=== PATIENT | female | born 1995 | race Caucasian/White ===

== ENCOUNTER 2016-04-18 14:54 | Emergency (ER) | payer OTHER ==
[~2016-04-18] VITALS: Ht 167.6 cm; Wt 118.0 kg
[~2016-04-18 14:54] MED LIST: ALBU1AER9 INH; ASPITAB42 PO; FLUT44AE INH; NORG1TAB15 PO
[2016-04-18 14:58] VITALS: TEMP 36.9; Ht 167.6 cm; Wt 118.0 kg
[2016-04-18] MEDS ORDERED: ONDANSETRON INJ 2 MG/ML 2 ML VIAL IV STA (15:30)
[2016-04-18] MEDS ORDERED: SODIUM CHLORIDE 0.9% 1000ML 1,000 ML IV STA (15:30)
[2016-04-18] MEDS ORDERED: MoRPHine SULFATE 4 MG/ML 1 ML CARP\\VIAL IV STA (15:30)
[2016-04-18] MEDS ORDERED: SODIUM CHLORIDE 0.9% 1000ML 1,000 ML IV ONE (15:30)
[2016-04-18] MEDS ORDERED: ALBU18002 INH (15:36)
[2016-04-18 15:53] LABS: BASO % 0.2 %; BASO ABS # 0.02 K/uL (0-0.2); COMPLETE YES; EOS % 0.8 %; HEMATOCRIT 40.8 % (37-47); IG% 0.4 %; LYMPH % 23.8 %; LYMPH ABS # 2.73 K/uL (1.2-3.4); MEAN CELL VOLUME 86.6 fL (80-100); MEAN CORPUSCULAR HEMOGLOBIN 29.7 pg (25-34); MEAN CORPUSCULAR HGB CONC 34.3 g/dl (32-36); MEAN PLATELET VOLUME 10.9 fL (7.4-10.4); MONO % 9.5 %; NEUT % 65.3 %; PLATELET COUNT 272 K/uL (130-400); RED BLOOD COUNT 4.71 M/uL (4.2-5.4); WHITE BLOOD COUNT 11.46 K/uL (4.8-10.8)
--- NOTE | 2016-04-18 15:55 | EMERGENCY ROOM VISIT NOTE ---
History Report prepared by Jessica: Breann Norman Under the Supervision of: Dr. Mark Mascorro M.D. First contact with patient: 15:30 Chief Complaint: HEADACHE Stated Complaint: SEVERE HEADACHE,MILD CRAMPS, 6 WEEKS History of Present Illness The patient is a 21 year old female who presents to the Emergency Room with complaints of a severe headache starting 2 days ago. The patient has a history of migraine headaches but she was taken off of Amitriptyline about a year ago. She reports her current headache is similar to her past migraine headaches. She describes it to be a pressure in her head on both sides which radiates to the back of her neck. She also reports a blurry vision and nausea. The patient also complains of a constant, mild abdominal cramps occurring for the past 5 days. She is currently about 6 weeks . She has not received an ultrasound yet. Her last menstrual period was on March 14 and it was not normal timing for her. She has had one , and one child. She denies any history of ectopic , , or miscarriage. She also complains of resolving bilateral upper extremity swelling. She has pain with squeezing her hands. The patient denies any recent falls, fevers, chills, vomiting, urinary symptoms, numbness, weakness, or any other complaints. Source of History: patient Onset: 2 days ago Position: head Symptom Intensity: severe Quality: pressure Associated Symptoms: + abdominal pain, + nausea, No chills, No fevers, No numbness, No urinary symptoms, No vomiting, No weakness Review of Systems See HPI for pertinent positives & negatives. A total of 10 systems reviewed and were otherwise negative. Past Medical & Surgical Medical Problems: (1) Abdominal pain (2) Abdominal pain (3) Abdominal pain (4) Abdominal pain (5) Active labor at term (6) Asthma (7) Asthma exacerbation (8) Asthma exacerbation (9) Asthma with exacerbation (10) Back pain (11) Back pain (12) Bronchitis (13) Chest pain (14) Closed head injury (15) Concussion (16) Depression (17) Dizziness (18) Encounter for test (19) First trimester (20) First trimester (21) Head injury (22) Irregular contractions (23) Low back pain (24) Low back pain (25) Migraine (26) Nausea and vomiting of , antepartum (27) Ovarian cyst (28) Ovarian cyst, follicular (29) Positive test (30) (31) , first (32) Third trimester (33) Third trimester (34) Threatened miscarriage (35) Urinary tract infection (36) Viral syndrome Surgical Problems: (1) History of tonsillectomy Old medical records were reviewed. Nurse's notes were reviewed and I agree with. Family History Diabetes mellitus FH: Crohn's disease FH: cancer FH: gallbladder disease FH: heart disease Hypertension Kidney disease Kidney stones Seizures Social History Smoking Status: Never Smoker Alcohol Use: none Drug Use: none Housing Status: lives with friends Occupation Status: employed Current/Historical Medications Scheduled PRN Albuterol Sulfate (Proair Respiclick), 2 PUFFS INH TID PRN for Shortness of Breath Allergies Coded Allergies: Dextromethorphan (Verified Allergy, Mild, RASH TO THE DYE IN DAYQUIL, 04/18) Guaifenesin (Verified Allergy, Mild, RASH TO THE DYE IN DAYQUIL, 04/18/16) Amadou (Verified Allergy, Mild, burning throat, 04/18/16) Pseudoephedrine (Verified Allergy, Mild, RASH TO THE DYE IN DAYQUIL, ) Uncoded Allergies: DYE (Allergy, Unknown, RASH, 04/18/16) Physical Exam Vital Signs Date Time Temp Pulse Resp B/P Pulse Ox O2 Delivery O2 Flow Rate FiO2 04/18/16 17:54 83 18 122/79 100 Room Air 04/18/16 17:12 85 18 139/84 100 Room Air 04/18/16 15:23 85 16 132/81 98 Room Air 04/18/16 14:58 36.9 97 18 131/84 99 Room Air Physical Exam General: Non-ill appearing, young female, in no acute distress. HEENT: Normal cephalic atraumatic. Pupils are equal round and reactive to light. Sclerae anicteric. Extraocular movements are intact. Oropharynx is pink with moist mucous membranes. No swelling of the mouth lips or tongue. Neck: Supple with a midline trachea. No meningeal signs or stiffness, no JVD or bruits. No Stridor. Negative Kernig and Brudzinski sign Chest: Clear to auscultation bilaterally. No wheezes or rhonchi. No increased work of breathing. Heart: regular rate and rhythm. Abdomen: Soft nontender, nondistended without rebound guarding or rigidity. Extremities: No cyanosis clubbing or edema. No calf tenderness or assymetry Spine/Back. Non tender to palpation. No CVA tenderness Skin: Good turgor without rashes. Neurologic exam: Cranial nerves two through 12 are intact. Motor and sensation are intact and symmetrical throughout. Medical Decision & Procedures ER Provider Diagnostic Interpretation: US results as stated below per my review and radiologist interpretation: ULTRASOUND OF THE PELVIS CLINICAL HISTORY: Pelvic cramping. Reportedly 6 weeks . COMPARISON STUDY: Pelvic ultrasound dated 11/30/2015. TECHNIQUE: Real-time, grayscale, and color flow sonography of the pelvis is performed both transabdominally and endovaginally. Images are reviewed in the transverse and longitudinal planes. FINDINGS: Uterus: The retroverted uterus is normal in size and echotexture, measuring 8.5 x 4.1 x 5.8 cm. Endometrium: The endometrial stripe is thickened measuring up to 2.2 cm. There is a 5 mm cystic focus which contains a yolk sac. This is too small for estimation of dates. Ovaries: The ovaries are normal in size and morphology. The right ovary measures 3.0 x 1.9 x 2.8 cm and the left ovary measures 3.9 x 2.1 x 4.1 cm. A 2.5 cm corpus luteum is noted on the left. Additional follicles are seen bilaterally. Normal Doppler waveforms are shown within both ovaries. Pelvis: There is trace free fluid in the cul-de-sac. No concerning adnexal lesion is seen. IMPRESSION: 1. There is a 5 mm cystic focus identified within the endometrium which contains a yolk sac. This confirms intrauterine gestation. This is too small for estimation of dates, and likely represents early . Close clinical, laboratory, and sonographic follow-up will be required. 2. The ovaries are normal in appearance noting a corpus luteum on the left. 3. There is trace nonspecific free fluid in the cul-de-sac. Electronically signed by: Marvin Porras M.D. 04/18/2016 5:29 PM Dictated Date/Time: 04/18/2016 5:25 PM ULTRASOUND OF THE PELVIS CLINICAL HISTORY: Pelvic cramping. Reportedly 6 weeks . COMPARISON STUDY: Pelvic ultrasound dated 11/30/2015. TECHNIQUE: Real-time, grayscale, and color flow sonography of the pelvis is performed both transabdominally and endovaginally. Images are reviewed in the transverse and longitudinal planes. FINDINGS: Uterus: The retroverted uterus is normal in size and echotexture, measuring 8.5 x 4.1 x 5.8 cm. Endometrium: The endometrial stripe is thickened measuring up to 2.2 cm. There is a 5 mm cystic focus which contains a yolk sac. This is too small for estimation of dates. Ovaries: The ovaries are normal in size and morphology. The right ovary measures 3.0 x 1.9 x 2.8 cm and the left ovary measures 3.9 x 2.1 x 4.1 cm. A 2.5 cm corpus luteum is noted on the left. Additional follicles are seen bilaterally. Normal Doppler waveforms are shown within both ovaries. Pelvis: There is trace free fluid in the cul-de-sac. No concerning adnexal lesion is seen. IMPRESSION: 1. There is a 5 mm cystic focus identified within the endometrium which contains a yolk sac. This confirms intrauterine gestation. This is too small for estimation of dates, and likely represents early . Close clinical, laboratory, and sonographic follow-up will be required. 2. The ovaries are normal in appearance noting a corpus luteum on the left. 3. There is trace nonspecific free fluid in the cul-de-sac. Electronically signed by: Marvin Porras M.D. 04/18/2016 5:29 PM Dictated Date/Time: 04/18/2016 5:25 PM Laboratory Results 04/18/16 15:39 Red Blood Count 4.71, Mean Corpuscular Volume 86.6, Mean Corpuscular Hemoglobin 29.7, Mean Corpuscular Hemoglobin Concent 34.3, Mean Platelet Volume 10.9, Neutrophils (%) (Auto) 65.3, Lymphocytes (%) (Auto) 23.8, Monocytes (%) (Auto) 9.5, Eosinophils (%) (Auto) 0.8, Basophils (%) (Auto) 0.2, Neutrophils # (Auto) 7.48, Lymphocytes # (Auto) 2.73, Monocytes # (Auto) 1.09, Eosinophils # (Auto) 0.09, Basophils # (Auto) 0.02 04/18/16 15:39 Test 04/18/16 15:30 04/18/16 15:39 White Blood Count 11.46 K/uL (4.8-10.8) Red Blood Count 4.71 M/uL (4.2-5.4) Hemoglobin 14.0 g/dL (12.0-16.0) Hematocrit 40.8 % (37-47) Mean Corpuscular Volume 86.6 fL (80-100) Mean Corpuscular Hemoglobin 29.7 pg (25-34) Mean Corpuscular Hemoglobin Concent 34.3 g/dl (32-36) Platelet Count 272 K/uL (130-400) Mean Platelet Volume 10.9 fL (7.4-10.4) Neutrophils (%) (Auto) 65.3 % Lymphocytes (%) (Auto) 23.8 % Monocytes (%) (Auto) 9.5 % Eosinophils (%) (Auto) 0.8 % Basophils (%) (Auto) 0.2 % Neutrophils # (Auto) 7.48 K/uL (1.4-6.5) Lymphocytes # (Auto) 2.73 K/uL (1.2-3.4) Monocytes # (Auto) 1.09 K/uL (0.11-0.59) Eosinophils # (Auto) 0.09 K/uL (0-0.5) Basophils # (Auto) 0.02 K/uL (0-0.2) RDW Standard Deviation 43.3 fL (36.4-46.3) RDW Coefficient of Variation 13.7 % (11.5-14.5) Immature Granulocyte % (Auto) 0.4 % Immature Granulocyte # (Auto) 0.05 K/uL (0.00-0.02) Anion Gap 11.0 mmol/L (3-11) Est Creatinine Clear Calc Drug Dose 189.1 ml/min Estimated GFR () > 150.0 Estimated GFR (Non- 129.8 BUN/Creatinine Ratio 13.4 (10-20) Calcium Level 8.2 mg/dl (8.5-10.1) Total Bilirubin 0.3 mg/dl (0.2-1) Direct Bilirubin < 0.1 mg/dl (0-0.2) Aspartate Amino Transf (AST/SGOT) 15 U/L (15-37) Alanine Aminotransferase (ALT/SGPT) 25 U/L (12-78) Alkaline Phosphatase 100 U/L (45-117) Total Protein 6.6 gm/dl (6.4-8.2) Albumin 3.2 gm/dl (3.4-5.0) Lipase 81 U/L (73-393) Human Chorionic Gonadotropin, Quant 1033 mIU/mL Laboratory studies as stated above per my review. Medications Administered Medications (Trade) Dose Ordered Sig/Froylan Route Start Time Stop Time Status Last Admin Dose Admin Sodium Chloride 1,000 ml @ 999 mls/hr Q1H1M STAT IV 04/18/16 15:30 04/18/16 16:30 DC 04/18/16 15:42 999 MLS/HR Sodium Chloride (Nss 1000ml) 1,000 ml @ 200 mls/hr Q5H ONCE IV 04/18/16 15:30 04/18/16 20:29 04/18/16 17:06 200 MLS/HR Morphine Sulfate (MoRPHine SULFATE INJ) 4 mg NOW STAT IV 04/18/16 15:30 04/18/16 15:32 DC 04/18/16 15:50 4 MG Ondansetron HCl (Zofran Inj) 4 mg NOW STAT IV 04/18/16 15:30 04/18/16 15:32 DC 04/18/16 15:49 4 MG Acetaminophen (Tylenol Tab) 650 mg NOW STAT PO 04/18/16 17:27 04/18/16 17:29 DC 04/18/16 17:43 650 MG ED Course 1530: Past medical records reviewed. The patient was evaluated in room A09B, and a complete history and physical examination were performed. 1530: Zofran Inj 4 mg IV, Morphine Sulfate 4 mg IV, Sodium Chloride 1000 ml @ 200 mls/hr IV, Sodium Chloride 1000 ml @ 999 mls/hr IV 1632: The patient is currently in ultrasound. 1727: She is complaining of a headache. Tylenol Tab 650 mg PO 1751: Upon reevaluation, the patient is doing well. I discussed the results and treatment plan with her. She verbalized agreement of the treatment plan. The patient was discharged home. Medical Decision Differential diagnosis includes but is not limited to migraine, ectopic , miscarriage, , UTI, electrolyte or metabolic abnormality. This patient comes in as described above. She was placed in room A9. She has a couple complaints. She's had a headache consistent with her previous migraines for couple days. She is also diagnosed with being recently. She estimates 6 weeks she's had some occasional cramping in the lower abdomen but no bleeding. This is her second she has no history of ectopic or miscarriage. She looks well on exam and has a normal neurologic exam. She has nothing to suggest meningitis or encephalitis. IV access was established and she was hydrated with 1 L IV normal saline. She was reassessed frequently. She was given morphine 4 mg IV and Zofran 4 mg IV. She was feeling better and did require Tylenol as well as 600 mg by mouth. Her white count is mildly elevated but she has nothing to suggest infection. She has no meningeal signs or stiffness. She's had no significant electrolyte or metabolic abnormalities. Her hCG is in the low thousand range on ultrasound. There is an IUP seen but to early to characterize dates. No ectopic seen. She's had no vaginal bleeding. Her blood type is O+ therefore she would not need any RhoGAM. It appears that she is having a migraine headache. She is also found to have an intrauterine . At this point, I cannot exclude an early miscarriage either and I told her to keep an eye on things and return if: Vaginal bleeding, worsening of symptoms, fever or chills, any new problems or concerns. She was happy with the plan and was discharged home. Impression Primary Impression: Migraine Additional Impressions: Intrauterine Abdominal cramping Scribe Attestation The scribe's documentation has been prepared under my direction and personally reviewed by me in its entirety. I confirm that the note above accurately reflects all work, treatment, procedures, and medical decision making performed by me. Departure Information Dispostion Home / Self-Care Referrals No Doctor, Assigned (PCP) Forms HOME CARE DOCUMENTATION FORM, IMPORTANT VISIT INFORMATION Patient Instructions My [facility] Additional Instructions Rest. Drink plenty of fluids. Use Tylenol/acetaminophen a maximum of 650 mg every 6 hours Do not take with any other medications that contain Tylenol Stay well-hydrated. Use a vitamin Return if: Increasing pain, numbness weakness, vaginal bleeding, worsening symptoms, any new problems or concerns. Follow-up with your OB doctor this week for recheck Problem Qualifiers
[2016-04-18 16:13] LABS: ALT/SGPT 25 U/L (12-78); BLOOD UREA NITROGEN 8 mg/dl (7-18); BUN/CREATININE RATIO 13.4 (10-20); CALCIUM 8.2 mg/dl (8.5-10.1); CARBON DIOXIDE 24 mmol/L (21-32); CHLORIDE 108 mmol/L (98-107); CREATININE 0.62 mg/dl (0.60-1.20); GLUCOSE 88 mg/dl (70-99); POTASSIUM 3.5 mmol/L (3.5-5.1); SODIUM 143 mmol/L (136-145)
[2016-04-18 16:16] LABS: ALKALINE PHOSPHATASE 100 U/L (45-117); AST/SGOT 15 U/L (15-37)
[2016-04-18] MEDS ORDERED: ACETAMINOPHEN 325 MG TAB PO STA (17:27)
--- NOTE | 2016-04-18 17:30 | DIAGNOSTIC IMAGING REPORT ---
ULTRASOUND OF THE PELVIS CLINICAL HISTORY: Pelvic cramping. Reportedly 6 weeks . COMPARISON STUDY: Pelvic ultrasound dated 11/30/2015. TECHNIQUE: Real-time, grayscale, and color flow sonography of the pelvis is performed both transabdominally and endovaginally. Images are reviewed in the transverse and longitudinal planes. FINDINGS: Uterus: The retroverted uterus is normal in size and echotexture, measuring 8.5 x 4.1 x 5.8 cm. Endometrium: The endometrial stripe is thickened measuring up to 2.2 cm. There is a 5 mm cystic focus which contains a yolk sac. This is too small for estimation of dates. Ovaries: The ovaries are normal in size and morphology. The right ovary measures 3.0 x 1.9 x 2.8 cm and the left ovary measures 3.9 x 2.1 x 4.1 cm. A 2.5 cm corpus luteum is noted on the left. Additional follicles are seen bilaterally. Normal Doppler waveforms are shown within both ovaries. Pelvis: There is trace free fluid in the cul-de-sac. No concerning adnexal lesion is seen. IMPRESSION: 1. There is a 5 mm cystic focus identified within the endometrium which contains a yolk sac. This confirms intrauterine gestation. This is too small for estimation of dates, and likely represents early . Close clinical, laboratory, and sonographic follow-up will be required. 2. The ovaries are normal in appearance noting a corpus luteum on the left. 3. There is trace nonspecific free fluid in the cul-de-sac. Electronically signed by: Marvin Porras M.D. 04/18/2016 5:29 PM Dictated Date/Time: 04/18/2016 5:25 PM
[2016-04-18 17:54] VITALS: BP 122/79; PULSE 83; O2SAT 100
[2016-10-27] MEDS ORDERED: ONDA4TAB46 PO (03:00)
== END 2016-04-18 18:02 | disposition home or self-care (01) ==
LOC: C.EDB 14:55 → C.EDA 18:02
DX: G43.909 Migraine, unspecified, not intractable, without status migrainosus (principal); O99.89 Other specified diseases and conditions complicating pregnancy, childbirth and the puerperium; Z3A.01 Less than 8 weeks gestation of pregnancy

== ENCOUNTER 2016-04-22 12:13 | Emergency (ER) | payer OTHER ==
[~2016-04-22] VITALS: Ht 167.6 cm; Wt 118.3 kg
[~2016-04-22 12:13] MED LIST changes: +ALBU18002 INH; -ALBU1AER9 INH; -ASPITAB42 PO; -FLUT44AE INH; -NORG1TAB15 PO
[2016-04-22 12:17] VITALS: TEMP 36.8; Ht 167.6 cm; Wt 118.3 kg
[2016-04-22] MEDS ORDERED: SODIUM CHLORIDE 0.9% 1000ML 1,000 ML IV ONE (12:37)
[2016-04-22] MEDS ORDERED: SODIUM CHLORIDE 0.9% 1000ML 1,000 ML IV STA (12:37)
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
[2016-04-22 13:03] LABS: BASO % 0.2 %; BASO ABS # 0.02 K/uL (0-0.2); COMPLETE YES; EOS % 0.6 %; IG% 0.3 %; LYMPH % 18.9 %; LYMPH ABS # 2.38 K/uL (1.2-3.4); MEAN CELL VOLUME 86.8 fL (80-100); MEAN CORPUSCULAR HEMOGLOBIN 29.2 pg (25-34); MEAN CORPUSCULAR HGB CONC 33.6 g/dl (32-36); MEAN PLATELET VOLUME 10.9 fL (7.4-10.4); MONO % 9.5 %; NEUT % 70.5 %; PLATELET COUNT 286 K/uL (130-400); RED BLOOD COUNT 5.07 M/uL (4.2-5.4); WHITE BLOOD COUNT 12.58 K/uL (4.8-10.8)
[2016-04-22 13:27] LABS: BUN/CREATININE RATIO 16.8 (10-20); CREATININE 0.69 mg/dl (0.60-1.20); POTASSIUM 3.8 mmol/L (3.5-5.1)
--- NOTE | 2016-04-22 14:41 | DIAGNOSTIC IMAGING REPORT ---
Limited ultrasound LIMITED (US) CLINICAL HISTORY: eval for demise pain TECHNIQUE: Transabdominal as well as transvaginal evaluation. COMPARISON STUDY: 04/18/2016 FINDINGS: Intrauterine gestational sac. Maternal cervix is closed. HISTORY: Of gestational age 5 weeks 5 days. heart previous not confirmed possibly due to the early gestational age. IMPRESSION: Intrauterine gestational sac with a pole confirmed. 2. are patent up to obtain probably due to the early gestational age of 5 weeks 5 days. 3. Repeat ultrasound is recommended a later date to confirm viability Electronically signed by: Glen Schwartz M.D. 04/22/2016 2:40 PM Dictated Date/Time: 04/22/2016 2:37 PM
[2016-04-22 15:05] VITALS: BP 141/90; PULSE 88; O2SAT 100
[2016-10-27] MEDS ORDERED: ONDA4TAB46 PO (03:00)
== END 2016-04-22 15:06 | disposition home or self-care (01) ==
LOC: C.EDB 12:14 → C.EDC 15:06
DX: O9A.211 Injury, poisoning and certain other consequences of external causes complicating pregnancy, first trimester (principal); S06.0X9A Concussion with loss of consciousness of unspecified duration, initial encounter; S39.91XA Unspecified injury of abdomen, initial encounter; Z3A.01 Less than 8 weeks gestation of pregnancy; O99.511 Diseases of the respiratory system complicating pregnancy, first trimester; J45.909 Unspecified asthma, uncomplicated; Z83.3 Family history of diabetes mellitus; Z82.49 Family history of ischemic heart disease and other diseases of the circulatory system; Z84.1 Family history of disorders of kidney and ureter; Z83.79 Family history of other diseases of the digestive system; Z84.89 Family history of other specified conditions; W22.09XA Striking against other stationary object, initial encounter; W01.198A Fall on same level from slipping, tripping and stumbling with subsequent striking against other object, initial encounter; Y99.8 Other external cause status

== ENCOUNTER → 2016-05-03 | Outpatient (CLI) | payer OTHER ==
[~2016-05-03] MED LIST changes: +CEPH500C PO; +NITR-5 PO; +ONDA4TAB10 SL; +ONDA4TAB46 PO; +PREN1TAB29 PO; +PROM25TA9 PO; +VNTHFA/IN INH
[2016-05-03 18:24] LABS: URINE APPEARANCE CLEAR (CLEAR); URINE BILIRUBIN NEG (NEG); URINE COLOR YELLOW; URINE NITRITE NEG (NEG); URINE SPECIFIC GRAVITY 1.019 (1.000-1.030); UROBILINOGEN NEG (NEG)
[2016-05-03 18:34] LABS: MANUAL MICROSCOPIC REQUIRED? NO; REVIEW REQ? NO
== END | disposition home or self-care (01) ==
LOC: C.LABSPEC 17:27
PROVIDERS: ATTEND Obstetrics & Gynecology
DX: Z34.90 Encounter for supervision of normal pregnancy, unspecified, unspecified trimester (principal); Z36 Encounter for antenatal screening of mother

== ENCOUNTER → 2016-05-09 | Outpatient (CLI) | payer OTHER ==
[2016-05-09 17:44] LABS: BASO % 0.1 %; BASO ABS # 0.02 K/uL (0-0.2); COMPLETE YES; EOS % 1.1 %; HEMATOCRIT 41.5 % (37-47); IG% 0.6 %; LYMPH % 24.4 %; LYMPH ABS # 3.42 K/uL (1.2-3.4); MEAN CELL VOLUME 84.9 fL (80-100); MEAN CORPUSCULAR HEMOGLOBIN 29.2 pg (25-34); MEAN CORPUSCULAR HGB CONC 34.5 g/dl (32-36); MEAN PLATELET VOLUME 11.1 fL (7.4-10.4); MONO % 9.8 %; PLATELET COUNT 327 K/uL (130-400); RED BLOOD COUNT 4.89 M/uL (4.2-5.4)
[2016-05-12 14:15] LABS: CHLAMYDIA TRACH RNA*** NOT DETECTED (NOT DETECTED); GC (NEIS GONORRHOEAE)RNA** NOT DETECTED (NOT DETECTED)
== END | disposition home or self-care (01) ==
LOC: C.LAB1850 16:24
PROVIDERS: ATTEND Obstetrics & Gynecology
DX: Z34.90 Encounter for supervision of normal pregnancy, unspecified, unspecified trimester (principal)

== ENCOUNTER 2016-06-12 08:39 | Emergency (ER) | payer OTHER ==
[~2016-06-12] VITALS: Ht 167.6 cm; Wt 116.8 kg
[~2016-06-12 08:39] MED LIST changes: -CEPH500C PO; -NITR-5 PO; -ONDA4TAB10 SL; -ONDA4TAB46 PO; -PREN1TAB29 PO; -PROM25TA9 PO; -VNTHFA/IN INH
[2016-06-12 08:50] VITALS: TEMP 37; Ht 167.6 cm; Wt 116.8 kg
[2016-06-12 09:28] LABS: URINE APPEARANCE CLEAR (CLEAR); URINE BILIRUBIN NEG (NEG); URINE COLOR DK YELLOW; URINE NITRITE NEG (NEG); URINE PH 5.5 (4.5-7.5); URINE SPECIFIC GRAVITY 1.026 (1.000-1.030); UROBILINOGEN NEG (NEG); ZZUR CULT IF INDIC CLEAN CATCH NO
[2016-06-12 09:34] LABS: MANUAL MICROSCOPIC REQUIRED? NO; REVIEW REQ? NO
[2016-06-12] MEDS ORDERED: ALBUTEROL HFA 8 GM INHALER INH STA (09:42)
[2016-06-12] MEDS ORDERED: ACETAMINOPHEN 500 MG TAB PO STA (09:44)
[2016-06-12 09:46] LABS: BASO % 0.2 %; BASO ABS # 0.02 K/uL (0-0.2); COMPLETE YES; EOS % 1.8 %; IG% 0.4 %; LYMPH % 14.3 %; LYMPH ABS # 1.46 K/uL (1.2-3.4); MEAN CELL VOLUME 85.1 fL (80-100); MEAN CORPUSCULAR HEMOGLOBIN 29.9 pg (25-34); MEAN CORPUSCULAR HGB CONC 35.1 g/dl (32-36); MEAN PLATELET VOLUME 11.3 fL (7.4-10.4); MONO % 8.3 %; PLATELET COUNT 204 K/uL (130-400); RED BLOOD COUNT 4.82 M/uL (4.2-5.4); WHITE BLOOD COUNT 10.22 K/uL (4.8-10.8)
--- NOTE | 2016-06-12 09:55 | EMERGENCY ROOM VISIT NOTE ---
History Report prepared by Jessica: Derian Cruz Under the Supervision of: Dr. Ravi Duarte M.D. First contact with patient: 09:36 Chief Complaint: ABDOMINAL PAIN Stated Complaint: GALLBLADDER PAIN, PELVIC CRAMPING,VOMITING,13 WEEK Nursing Triage Summary: Pain near her gall bladder. History of Present Illness The patient is a 21 year old female who presents to the Emergency Room with complaints of persistent abdominal pain for the past 2 weeks. The patient had an episode of vomiting this morning and afterwards her discomfort was worse. The discomfort started on her left side two weeks ago and she also complains of cramping on the right side for 2 weeks. Now, most of her discomfort has moved to her right side. She has a history of gallbladder issues and has discussed getting her gallbladder removed, but has decided not to have the surgery yet. She has been trying a new diet which has not helped resolved her symptoms. The patient also notes that she has had green stools for the past week. She denies diarrhea, but states that her bowel movements have been going back and forth between constipation and movements with soft stool. She also complains of a cough that started yesterday. She is 14 weeks and this is her second . She denies cramping in her legs. Source of History: patient Onset: the past 2 weeks Position: abdomen Timing: other (persistent) Associated Symptoms: + cough, + vomiting, No diarrhea Note: Other associated symptoms: cramping in her abdomen, green stool, alternating between constipation and soft bowel movements Denies: cramping in her legs. Review of Systems All systems have been listed, reviewed, and are negative other than those previously mentioned. Please see Additional Medical History Sheet. Past Medical & Surgical Medical Problems: (1) Abdominal pain (2) Abdominal pain (3) Abdominal pain (4) Abdominal pain (5) Active labor at term (6) Asthma (7) Asthma exacerbation (8) Asthma exacerbation (9) Asthma with exacerbation (10) Back pain (11) Back pain (12) Bronchitis (13) Chest pain (14) Closed head injury (15) Concussion (16) Depression (17) Dizziness (18) Encounter for test (19) First trimester (20) First trimester (21) Head injury (22) Irregular contractions (23) Low back pain (24) Low back pain (25) Migraine (26) Nausea and vomiting of , antepartum (27) Ovarian cyst (28) Ovarian cyst, follicular (29) Positive test (30) (31) , first (32) Third trimester (33) Third trimester (34) Threatened miscarriage (35) Urinary tract infection (36) Viral syndrome Surgical Problems: (1) History of tonsillectomy Family History Diabetes mellitus FH: Crohn's disease FH: cancer FH: gallbladder disease FH: heart disease Hypertension Kidney disease Kidney stones Seizures Social History Smoking Status: Never Smoker Alcohol Use: none Drug Use: none Marital Status: in relationship Housing Status: lives with friends Occupation Status: employed Current/Historical Medications No Active Prescriptions or Reported Meds Allergies Coded Allergies: Dextromethorphan (Verified Allergy, Mild, RASH TO THE DYE IN DAYQUIL, ) Guaifenesin (Verified Allergy, Mild, RASH TO THE DYE IN DAYQUIL, 04/22/16) Amadou (Verified Allergy, Mild, burning throat, 04/22/16) Pseudoephedrine (Verified Allergy, Mild, RASH TO THE DYE IN DAYQUIL, ) Uncoded Allergies: DYE (Allergy, Unknown, RASH, 04/18/16) Physical Exam Vital Signs Date Time Temp Pulse Resp B/P Pulse Ox O2 Delivery O2 Flow Rate FiO2 06/12/16 12:33 86 18 114/74 98 06/12/16 11:56 86 18 114/74 98 Room Air 06/12/16 08:50 37.0 88 16 148/84 100 Room Air Physical Exam GENERAL: Patient awake, alert, oriented x 3. Patient follows commands. Patient does not appear toxic. Patient is adequately hydrated and well- nourished. SKIN: No erythema, pallor, cyanosis or rash HEENT: Normal head, pupils equal, reactive to light and accommodation. Neck: Without adenopathy, no neck vein distention. LUNGS: Clear to auscultation. No wheezes, no rales, no rhonchi. Patient has occasional dry cough. HEART: No murmurs. No gallops. No rubs ABDOMEN: No masses, no rebound, no hepatomegaly or splenomegaly. Obese, RUQ tenderness, no rebound or guarding. EXTREMITIES: No signs of trauma. No pedal or pretibial edema. No calf or thigh tenderness. NEUROLOGIC: Cranial nerves II-XII within normal limits. No gross motor sensory function deficits. Medical Decision & Procedures ER Provider Diagnostic Interpretation: US results are interpretations by the radiologist and per my review. ABDOMINAL ULTRASOUND, RIGHT UPPER QUADRANT HISTORY: Right upper quadrant pain. COMPARISON: CT of the abdomen and pelvis November 30, 2015 and right upper quadrant ultrasound January 10, 2015. FINDINGS: The liver is sonographically normal. There is no biliary ductal dilatation. No gallstones are identified. The pancreatic body is normal. The head and tail are partially obscured. There is no right hydronephrosis. IMPRESSION: No significant abnormality identified within the right upper quadrant. Electronically signed by: Jak Valle M.D. 06/12/2016 10:29 AM Dictated Date/Time: 06/12/2016 10:25 AM Laboratory Results 06/12/16 09:38 Red Blood Count 4.82, Mean Corpuscular Volume 85.1, Mean Corpuscular Hemoglobin 29.9, Mean Corpuscular Hemoglobin Concent 35.1, Mean Platelet Volume 11.3, Neutrophils (%) (Auto) 75.0, Lymphocytes (%) (Auto) 14.3, Monocytes (%) (Auto) 8.3, Eosinophils (%) (Auto) 1.8, Basophils (%) (Auto) 0.2, Neutrophils # (Auto) 7.67, Lymphocytes # (Auto) 1.46, Monocytes # (Auto) 0.85, Eosinophils # (Auto) 0.18, Basophils # (Auto) 0.02 06/12/16 09:38 Test 06/12/16 09:15 06/12/16 09:38 Urine Color DK YELLOW Urine Appearance CLEAR (CLEAR) Urine pH 5.5 (4.5-7.5) Urine Specific [place] 1.026 (1.000-1.030) Urine Protein NEG (NEG) Urine Glucose (UA) NEG (NEG) Urine Ketones NEG (NEG) Urine Occult Blood NEG (NEG) Urine Nitrite NEG (NEG) Urine Bilirubin NEG (NEG) Urine Urobilinogen NEG (NEG) Urine Leukocyte Esterase NEG (NEG) White Blood Count 10.22 K/uL (4.8-10.8) Red Blood Count 4.82 M/uL (4.2-5.4) Hemoglobin 14.4 g/dL (12.0-16.0) Hematocrit 41.0 % (37-47) Mean Corpuscular Volume 85.1 fL (80-100) Mean Corpuscular Hemoglobin 29.9 pg (25-34) Mean Corpuscular Hemoglobin Concent 35.1 g/dl (32-36) Platelet Count 204 K/uL (130-400) Mean Platelet Volume 11.3 fL (7.4-10.4) Neutrophils (%) (Auto) 75.0 % Lymphocytes (%) (Auto) 14.3 % Monocytes (%) (Auto) 8.3 % Eosinophils (%) (Auto) 1.8 % Basophils (%) (Auto) 0.2 % Neutrophils # (Auto) 7.67 K/uL (1.4-6.5) Lymphocytes # (Auto) 1.46 K/uL (1.2-3.4) Monocytes # (Auto) 0.85 K/uL (0.11-0.59) Eosinophils # (Auto) 0.18 K/uL (0-0.5) Basophils # (Auto) 0.02 K/uL (0-0.2) RDW Standard Deviation 40.9 fL (36.4-46.3) RDW Coefficient of Variation 13.1 % (11.5-14.5) Immature Granulocyte % (Auto) 0.4 % Immature Granulocyte # (Auto) 0.04 K/uL (0.00-0.02) Anion Gap 8.0 mmol/L (3-11) Est Creatinine Clear Calc Drug Dose 201.0 ml/min Estimated GFR () > 150.0 Estimated GFR (Non- 132.7 BUN/Creatinine Ratio 13.3 (10-20) Calcium Level 8.6 mg/dl (8.5-10.1) Total Bilirubin 0.3 mg/dl (0.2-1) Aspartate Amino Transf (AST/SGOT) 9 U/L (15-37) Alanine Aminotransferase (ALT/SGPT) 17 U/L (12-78) Alkaline Phosphatase 102 U/L (45-117) Total Protein 6.9 gm/dl (6.4-8.2) Albumin 3.0 gm/dl (3.4-5.0) Globulin 3.9 gm/dl (2.5-4.0) Albumin/Globulin Ratio 0.8 (0.9-2) Lipase 74 U/L (73-393) Laboratory results as stated above per my review. Medications Administered Medications (Trade) Dose Ordered Sig/Froylan Route Start Time Stop Time Status Last Admin Dose Admin Albuterol (Ventolin Hfa Inhaler) 2 puffs NOW STAT INH 06/12/16 09:42 06/12/16 09:45 DC 06/12/16 09:54 2 PUFFS Acetaminophen (Tylenol Tab) 1,000 mg NOW STAT PO 06/12/16 09:44 06/12/16 09:46 DC 06/12/16 09:54 1,000 MG ED Course 0938: Past medical records reviewed. The patient was evaluated in room A2. A complete history and physical examination was performed. 0942: Ordered Albuterol 2 puffs INH. 0944: Ordered Tylenol tab 1000 mg PO. 1142: Upon reevaluation, the patient appeared to have improvement of her symptoms. I discussed today's findings with her. She verbalized agreement of the treatment plan. The patient was discharged home. Medical Decision Differential diagnoses include acute bronchitis, cholelithiasis, cholecystitis, peptic/ gastric ulcer disease. 14 week female with right upper quadrant abdominal pain had a complete workup including multiple labs, urinalysis and ultrasound. Patient has no elevation of her liver enzymes. Ultrasound does not reveal stones or inflammation. Despite that, the patient appears to have biliary colic. Patient requires minimal pain relief. Patient may require a HIDA scan at some point but I do not believe she should have it now. Patient declined any pain medication. The patient also did complain of some respiratory congestion. She was started on an inhaler here which she will continue as needed. . Impression Primary Impression: Right upper quadrant abdominal pain Additional Impressions: Acute bronchitis Scribe Attestation The scribe's documentation has been prepared under my direction and personally reviewed by me in its entirety. I confirm that the note above accurately reflects all work, treatment, procedures, and medical decision making performed by me. Departure Information Dispostion Home / Self-Care Prescriptions No Active Prescriptions or Reported Meds Referrals Katarina Schultz C.R.N.P (PCP) Forms HOME CARE DOCUMENTATION FORM, IMPORTANT VISIT INFORMATION Patient Instructions My [facility] Additional Instructions 650 mg of Tylenol every 4 hours as needed for pain. Keep a food diary. 2 puffs of your inhaler every 4 hours as needed for chest congestion. Follow-up with your family physician and/or presentation manager within the next 2 weeks. Problem Qualifiers
[2016-06-12 10:08] LABS: BLOOD UREA NITROGEN 8 mg/dl (7-18); CREATININE 0.58 mg/dl (0.60-1.20); GLUCOSE 82 mg/dl (70-99)
[2016-06-12 10:09] LABS: BUN/CREATININE RATIO 13.3 (10-20); CALCIUM 8.6 mg/dl (8.5-10.1); CARBON DIOXIDE 25 mmol/L (21-32); CHLORIDE 106 mmol/L (98-107); POTASSIUM 3.7 mmol/L (3.5-5.1); SODIUM 139 mmol/L (136-145)
[2016-06-12 10:12] LABS: ALB/GLOB RATIO 0.8 (0.9-2); ALKALINE PHOSPHATASE 102 U/L (45-117); ALT/SGPT 17 U/L (12-78); AST/SGOT 9 U/L (15-37)
--- NOTE | 2016-06-12 10:30 | DIAGNOSTIC IMAGING REPORT ---
ABDOMINAL ULTRASOUND, RIGHT UPPER QUADRANT HISTORY: Right upper quadrant pain. COMPARISON: CT of the abdomen and pelvis November 30, 2015 and right upper quadrant ultrasound January 10, 2015. FINDINGS: The liver is sonographically normal. There is no biliary ductal dilatation. No gallstones are identified. The pancreatic body is normal. The head and tail are partially obscured. There is no right hydronephrosis. IMPRESSION: No significant abnormality identified within the right upper quadrant. Electronically signed by: Jak Valle M.D. 06/12/2016 10:29 AM Dictated Date/Time: 06/12/2016 10:25 AM
[2016-06-12 12:33] VITALS: BP 114/74; PULSE 86; O2SAT 98
[2016-10-27] MEDS ORDERED: ONDA4TAB46 PO (03:00)
== END 2016-06-12 12:33 | disposition home or self-care (01) ==
LOC: C.EDB 08:41 → C.EDA 12:33
DX: R10.11 Right upper quadrant pain (principal); J20.9 Acute bronchitis, unspecified; O99.89 Other specified diseases and conditions complicating pregnancy, childbirth and the puerperium; Z3A.14 14 weeks gestation of pregnancy

== ENCOUNTER 2016-06-17 22:19 | Emergency (ER) | payer OTHER ==
[~2016-06-17] VITALS: Ht 167.6 cm; Wt 115.0 kg
[2016-06-17 22:20] VITALS: TEMP 37.5; Ht 167.6 cm; Wt 115.0 kg
[2016-06-17] MEDS ORDERED: SODIUM CHLORIDE 0.9% 1000ML 1,000 ML IV STA (23:02)
[2016-06-17] MEDS ORDERED: ONDANSETRON INJ 2 MG/ML 2 ML VIAL IV STA (23:02)
[2016-06-17 23:20] LABS: URINE APPEARANCE CLOUDY (CLEAR); URINE COLOR DK YELLOW; URINE EPITHELIAL CELL AUTO >30 /lpf (0-5); URINE NITRITE NEG (NEG); URINE SPECIFIC GRAVITY 1.031 (1.000-1.030); UROBILINOGEN NEG (NEG); ZZUR CULT IF INDIC CLEAN CATCH YES
[2016-06-17 23:25] LABS: BASO % 0.1 %; BASO ABS # 0.01 K/uL (0-0.2); COMPLETE YES; EOS % 0.5 %; HEMATOCRIT 42.8 % (37-47); IG% 0.2 %; LYMPH % 14.8 %; LYMPH ABS # 1.37 K/uL (1.2-3.4); MEAN CELL VOLUME 84.4 fL (80-100); MEAN CORPUSCULAR HEMOGLOBIN 29.6 pg (25-34); MEAN PLATELET VOLUME 11.6 fL (7.4-10.4); NEUT % 77.4 %; PLATELET COUNT 242 K/uL (130-400); RED BLOOD COUNT 5.07 M/uL (4.2-5.4); WHITE BLOOD COUNT 9.23 K/uL (4.8-10.8)
[2016-06-17 23:43] LABS: ALT/SGPT 20 U/L (12-78); BLOOD UREA NITROGEN 6 mg/dl (7-18); BUN/CREATININE RATIO 10.9 (10-20); CALCIUM 8.6 mg/dl (8.5-10.1); CARBON DIOXIDE 21 mmol/L (21-32); CHLORIDE 108 mmol/L (98-107); CREATININE 0.56 mg/dl (0.60-1.20); GLUCOSE 84 mg/dl (70-99); MAGNESIUM 1.8 mg/dl (1.8-2.4); POTASSIUM 3.5 mmol/L (3.5-5.1); SODIUM 138 mmol/L (136-145)
[2016-06-17 23:46] LABS: ALB/GLOB RATIO 0.7 (0.9-2); ALKALINE PHOSPHATASE 99 U/L (45-117); AST/SGOT 11 U/L (15-37)
[2016-06-17 23:48] LABS: MANUAL MICROSCOPIC REQUIRED? NO; REVIEW REQ? YES; URINE BILIRUBIN NEG (NEG)
[2016-06-17 23:49] LABS: URINE MUCUS PRESENT (NONE PRSENT)
[2016-06-18] MEDS ORDERED: SODIUM CHLORIDE 0.9% 500ML 500 ML IV STA (00:11)
[2016-06-18] MEDS ORDERED: ACETAMINOPHEN 500 MG TAB PO STA (00:54)
[2016-06-18] MEDS ORDERED: CEPH500C PO (01:26)
[2016-06-18] MEDS ORDERED: ONDA4TAB10 SL (01:26)
--- NOTE | 2016-06-18 01:27 | EMERGENCY ROOM VISIT NOTE ---
History First contact with patient: 22:41 Chief Complaint: ABDOMINAL PAIN Stated Complaint: CRAMPS,VOMITING,DEHYDRATION,14 WKS PREG Nursing Triage Summary: pt reports 14 wks preg , reports low abdominal pain and cramping with NV ,and difficulty keeping any fluids down today , denies vag bleeding History of Present Illness The patient is a 21 year old female who presents to the Emergency Department by private vehicle for evaluation of her pelvic cramping as well as associated vomiting and question for dehydration. The patient reports that she's had ongoing symptoms for the past 2 days. She reports increasing cramping today which prompted visit to the emergency department. She is 14 weeks . This is her second . She has had follow-up with her SECURITY SOFTWARE ENGINEER recently. The patient denies fevers or chills. She denies any headaches. She reports no chest pain, palpitations, shortness of breath. She rates her current discomfort as an 8/10. She is tried nothing [id number] for symptoms. She reports no vaginal bleeding or spotting. She denies any hematuria or dysuria. Review of Systems A complete 10-point Review of Systems was discussed with the patient, with pertinent positives and negatives listed in the History of Present Illness. All remaining Review of Systems questions can be considered negative unless otherwise specified. Past Medical/Surgical History Medical Problems: (1) Abdominal pain (2) Abdominal pain (3) Abdominal pain (4) Abdominal pain (5) Active labor at term (6) Asthma (7) Asthma exacerbation (8) Asthma exacerbation (9) Asthma with exacerbation (10) Back pain (11) Back pain (12) Bronchitis (13) Chest pain (14) Closed head injury (15) Concussion (16) Depression (17) Dizziness (18) Encounter for test (19) First trimester (20) First trimester (21) Head injury (22) Irregular contractions (23) Low back pain (24) Low back pain (25) Migraine (26) Nausea and vomiting of , antepartum (27) Ovarian cyst (28) Ovarian cyst, follicular (29) Positive test (30) (31) , first (32) Third trimester (33) Third trimester (34) Threatened miscarriage (35) Urinary tract infection (36) Viral syndrome Surgical Problems: (1) History of tonsillectomy Family History Diabetes mellitus FH: Crohn's disease FH: cancer FH: gallbladder disease FH: heart disease Hypertension Kidney disease Kidney stones Seizures Social History Smoking Status: Never Smoker Alcohol Use: none Drug Use: none Marital Status: in relationship Housing Status: lives with friends Occupation Status: employed Current/Historical Medications Scheduled Cephalexin Monohydrate (Keflex), 500 MG PO TID Vit W/ Ferrous Fumara (), 1 TAB PO DAILY Scheduled PRN Albuterol Hfa (Ventolin Hfa), 2 PUFFS INH Q6H PRN for Shortness of Breath Ondasetron Odt (Zofran Odt), 1 TAB SL Q6 PRN for Nausea or Vomiting Allergies Coded Allergies: Dextromethorphan (Verified Allergy, Mild, RASH TO THE DYE IN DAYQUIL, ) Guaifenesin (Verified Allergy, Mild, RASH TO THE DYE IN DAYQUIL, 06/17/16) Amadou (Verified Allergy, Mild, burning throat, 06/17/16) Pseudoephedrine (Verified Allergy, Mild, RASH TO THE DYE IN DAYQUIL, ) Uncoded Allergies: DYE (Allergy, Unknown, RASH, 04/18/16) Physical Exam Vital Signs Date Time Temp Pulse Resp B/P Pulse Ox O2 Delivery O2 Flow Rate FiO2 06/18/16 01:37 84 18 104/62 98 06/18/16 00:01 66 18 113/63 98 Room Air 06/17/16 22:20 37.5 101 20 113/78 95 Room Air Pain Rating (0-10): 8 Physical Exam VITAL SIGNS - Vital signs and nursing notes were reviewed. GENERAL - 21-year-old female appearing her stated age who is in no acute distress. Communicates well with provider and answers questions appropriately. LUNGS - Chest wall symmetric without accessory muscle use, intercostals retractions, or central cyanosis. Normal vesicular breath sounds CTA B/L. No wheezes, rales, or rhonchi appreciated. CARDIAC - RRR with S1/S2. No murmur, rubs, or gallops appreciated. ABDOMEN - Abdominal contour obese and without pulsations or visible masses. BS normoactive all four quadrants. Mild tenderness to palpation appreciated in the suprapubic area. No guarding. No Rebound Tenderness. Negative Rovsing's. Negative Deng's. No palpable masses, hepatosplenomegaly, or ascites noted. PSYCH - A&Ox3 and cooperates fully with examiner. Pt is very pleasant and interacts well with examiner. Medical Decision & Procedures ER Provider Diagnostic Interpretation: Radiological imaging and reports were reviewed by myself. Radiologist's Interpretation per [facility] as follows: US OB LIMITED: US OB LIMITED: Single IUP 14 weeks 3 days by measurements. heart tones 154 bpm. Anterior placenta with possible uterine contraction versus succenturiate or bilobed placenta. Attention on follow-up. Hypoechoic area with flow deep to placenta may represent myometrium. Cervix is long and closed measuring 4.5 cm. Both ovaries demonstrates normal flow. Probable 1.7 cm left ovarian corpus luteum. Laboratory Results 06/17/16 22:35 Red Blood Count 5.07, Mean Corpuscular Volume 84.4, Mean Corpuscular Hemoglobin 29.6, Mean Corpuscular Hemoglobin Concent 35.0, Mean Platelet Volume 11.6, Neutrophils (%) (Auto) 77.4, Lymphocytes (%) (Auto) 14.8, Monocytes (%) (Auto) 7.0, Eosinophils (%) (Auto) 0.5, Basophils (%) (Auto) 0.1, Neutrophils # (Auto) 7.13, Lymphocytes # (Auto) 1.37, Monocytes # (Auto) 0.65, Eosinophils # (Auto) 0.05, Basophils # (Auto) 0.01 06/17/16 22:35 Test 06/17/16 22:35 White Blood Count 9.23 K/uL (4.8-10.8) Red Blood Count 5.07 M/uL (4.2-5.4) Hemoglobin 15.0 g/dL (12.0-16.0) Hematocrit 42.8 % (37-47) Mean Corpuscular Volume 84.4 fL (80-100) Mean Corpuscular Hemoglobin 29.6 pg (25-34) Mean Corpuscular Hemoglobin Concent 35.0 g/dl (32-36) Platelet Count 242 K/uL (130-400) Mean Platelet Volume 11.6 fL (7.4-10.4) Neutrophils (%) (Auto) 77.4 % Lymphocytes (%) (Auto) 14.8 % Monocytes (%) (Auto) 7.0 % Eosinophils (%) (Auto) 0.5 % Basophils (%) (Auto) 0.1 % Neutrophils # (Auto) 7.13 K/uL (1.4-6.5) Lymphocytes # (Auto) 1.37 K/uL (1.2-3.4) Monocytes # (Auto) 0.65 K/uL (0.11-0.59) Eosinophils # (Auto) 0.05 K/uL (0-0.5) Basophils # (Auto) 0.01 K/uL (0-0.2) RDW Standard Deviation 39.9 fL (36.4-46.3) RDW Coefficient of Variation 13.1 % (11.5-14.5) Immature Granulocyte % (Auto) 0.2 % Immature Granulocyte # (Auto) 0.02 K/uL (0.00-0.02) Urine Color DK YELLOW Urine Appearance CLOUDY (CLEAR) Urine pH 6.0 (4.5-7.5) Urine Specific [place] 1.031 (1.000-1.030) Urine Protein NEG (NEG) Urine Glucose (UA) NEG (NEG) Urine Ketones 2+ (NEG) Urine Occult Blood NEG (NEG) Urine Nitrite NEG (NEG) Urine Bilirubin NEG (NEG) Urine Urobilinogen NEG (NEG) Urine Leukocyte Esterase TRACE (NEG) Urine WBC (Auto) 5-10 /hpf (0-5) Urine RBC (Auto) 0-4 /hpf (0-4) Urine Hyaline Casts (Auto) 0 /lpf (0-5) Urine Epithelial Cells (Auto) >30 /lpf (0-5) Urine Bacteria (Auto) 2+ (NEG) Urine Pathogenic Casts /lpf (0) Urine Mucus PRESENT (NONE PRSENT) Anion Gap 9.0 mmol/L (3-11) Est Creatinine Clear Calc Drug Dose 206.3 ml/min Estimated GFR () > 150.0 Estimated GFR (Non- 134.2 BUN/Creatinine Ratio 10.9 (10-20) Calcium Level 8.6 mg/dl (8.5-10.1) Magnesium Level 1.8 mg/dl (1.8-2.4) Total Bilirubin 0.4 mg/dl (0.2-1) Aspartate Amino Transf (AST/SGOT) 11 U/L (15-37) Alanine Aminotransferase (ALT/SGPT) 20 U/L (12-78) Alkaline Phosphatase 99 U/L (45-117) Total Protein 7.1 gm/dl (6.4-8.2) Albumin 3.0 gm/dl (3.4-5.0) Globulin 4.1 gm/dl (2.5-4.0) Albumin/Globulin Ratio 0.7 (0.9-2) Lipase 72 U/L (73-393) Date/Time Source Procedure Growth Status 06/17/16 22:35 Urine , Clean Catch Urine Culture - Final MORE THAN THREE TYPES OF ORGANISMS KS... Complete Medications Administered Medications (Trade) Dose Ordered Sig/Froylan Route Start Time Stop Time Status Last Admin Dose Admin Sodium Chloride (Nss 1000ml) 1,000 ml @ 999 mls/hr Q1H1M STAT IV 06/17/16 23:02 06/18/16 00:02 DC 06/17/16 23:14 999 MLS/HR Ondansetron HCl 4 mg 4 mg NOW STAT IV 06/17/16 23:02 06/17/16 23:04 DC 06/17/16 23:14 4 MG Sodium Chloride (Nss 500ml) 500 ml @ 999 mls/hr Q31M STAT IV 06/18/16 00:11 06/18/16 00:41 DC 06/18/16 00:11 999 MLS/HR Acetaminophen (Tylenol Tab) 1,000 mg NOW STAT PO 06/18/16 00:54 06/18/16 00:56 DC 06/18/16 01:00 1,000 MG Cephalexin Monohydrate (Keflex 500MG Home Pack) 1 homepack NOW ONCE PO 06/18/16 01:30 06/18/16 01:31 DC 06/18/16 01:24 1 HOMEPACK Ondansetron HCl (ZOFRAN ODT 4MG Home Pack) 1 homepack UD ONCE PO 06/18/16 01:30 06/18/16 01:31 DC 06/18/16 01:24 1 HOMEPACK ED Course Patient was seen and evaluated by myself. Labs were drawn, saline lock in place. The patient was hydrated with a 1000 mL normal saline bolus. She received 4 mg Zofran intravenously. Ultrasound was ordered. She was hydrated with an additional 500 mL normal saline bolus. She was provided 1 g of Tylenol for complaint of headache. Pelvic ultrasound results above. Patient was provided initial dose of Keflex orally for UTI per urinalysis. She is not symptomatic. Laboratory results and imaging studies were reviewed with the patient who acknowledges understanding. The patient was encouraged to follow- up with her MECHANICS SUPERVISOR from today's visit. She was educated on worrisome symptoms for return visit to the emergency department. Patient discharged home afebrile and in good condition. Medical Decision Given the patient's presentation and stated complaints, I did elect to perform the above-mentioned workup. The patient resents today with pelvic cramping. She is 14 weeks . She has no fever. She has no leukocytosis. She was copiously hydrated and received IV Zofran with moderate relief of symptoms. She was found have slight UTI. She will be treated for this pending urine cultures. Patient feels much better at this time. She'll follow-up with OB/ MECHANICS SUPERVISOR from today's visit. She will return for any changing or worsening symptoms. Patient discharged home afebrile and in good condition. In the evaluation and treatment of this patient, the following differential diagnoses were considered: Threatened , placental abruption, Bladder Cancer, Chlamydial Genitourinary Infection, Cystitis, Herpes Simplex, Interstitial Cystitis, PID, Pyelonephritis, Urethritis, or Vaginitis. Impression Primary Impression: Vomiting affecting , antepartum Additional Impressions: Pelvic cramping in antepartum period UTI in Departure Information Dispostion Home / Self-Care Condition GOOD Prescriptions Cephalexin Monohydrate (Keflex) 500 Mg Cap 500 MG PO TID for 7 Days, #21 CAP Prov: Siva Duckworth PA-C 06/18/16 Ondasetron Odt (ZOFRAN ODT) 4 Mg Tab 1 TAB SL Q6 Y for Nausea or Vomiting for 5 Days, #20 TAB Prov: Siva Duckworth PA-C 06/18/16 Referrals Katarina Schultz, C.R.N.P (PCP) Patient Instructions ED Nausea Vomiting, ED UTI Cystitis Female, My [facility] Additional Instructions You have been seen in the emergency department today for your vomiting, pelvic pain, and UTI. You were prescribed Keflex to be taken as prescribed. This is an antibiotic. All antibiotics have the potential to cause diarrhea. Stop this medication and contact a medical provider if you were to develop any significant adverse side effects including: wheezing, shortness of breath, passing out, vomiting, or a diffuse rash. Always take antibiotics as directed and COMPLETE the ENTIRE course regardless of the improvement of your symptoms. You have been prescribed Zofran to be used for any nausea or vomiting. Take as prescribed. Follow-up with your SECURITY SOFTWARE ENGINEER from today's visit. Return for any changing or worsening symptoms. Problem Qualifiers Additional Impressions: UTI in Trimester: second trimester Qualified Codes: O23.42 - Unspecified infection of urinary tract in , second trimester
[2016-06-18] MEDS ORDERED: CEPHALEXIN 500MG HOME PACK 1 EA BTL PO ONE (01:30)
[2016-06-18] MEDS ORDERED: ONDANSETRON HOME PACK 4MG OD TAB PO ONE (01:30)
[2016-06-18 01:37] VITALS: BP 104/62; PULSE 84; O2SAT 98
--- NOTE | 2016-06-18 06:41 | DIAGNOSTIC IMAGING REPORT ---
LIMITED (US) CLINICAL HISTORY: Pelvic pain. . COMPARISON STUDY: 04/22/2016 FINDINGS: A single alive intrauterine gestation was visualized. The heart rate is 154. The femur measured 14 mm, and the BPD measured 25 mm. The estimated postmenstrual age is 14 weeks and 3 days. The cervix is closed measuring 4.5 cm. The right ovary appears architecturally normal. The left ovary contained a 17 mm hypoechoic focus, likely are presenting a corpus luteum. The placenta is anterior. There is a succenturiate/bilobed placenta versus uterine contraction. No previa is visualized. A anatomic study was not performed. IMPRESSION: 1. Single live fetus. The estimated postmenstrual age is 14 weeks and 3 days 2. Anterior placenta with uterine contraction versus succenturiate/bilobed placenta. Electronically signed by: Vivek Le M.D. 06/18/2016 6:40 AM Dictated Date/Time: 06/18/2016 6:35 AM
[2016-10-27] MEDS ORDERED: ONDA4TAB46 PO (03:00)
== END 2016-06-18 01:38 | disposition home or self-care (01) ==
LOC: C.EDB 22:20 → C.EDA 06-18 01:38
DX: O23.42 Unspecified infection of urinary tract in pregnancy, second trimester (principal); O21.9 Vomiting of pregnancy, unspecified; O99.342 Other mental disorders complicating pregnancy, second trimester; Z3A.14 14 weeks gestation of pregnancy; O99.512 Diseases of the respiratory system complicating pregnancy, second trimester; R51 Headache; J45.909 Unspecified asthma, uncomplicated; F32.9 Major depressive disorder, single episode, unspecified; Z83.3 Family history of diabetes mellitus; Z83.79 Family history of other diseases of the digestive system; Z82.49 Family history of ischemic heart disease and other diseases of the circulatory system; Z82.0 Family history of epilepsy and other diseases of the nervous system

== ENCOUNTER → 2016-07-04 | Outpatient (CLI) | payer OTHER ==
[~2016-07-04] MED LIST changes: -ALBU18002 INH; +FLUO20CA35 PO; +NITR-5 PO; +ONDA4TAB10 SL; +ONDA4TAB46 PO; +PREN1TAB29 PO; +PROM25TA9 PO; +VNTHFA/IN INH
[2016-07-04 17:24] LABS: GTGD 50 Grams
[2016-07-06 13:40] LABS: AFP CONCENTRATION 26.3 NG/ML; AFP MULTIPLE OF MEDIAN 1.02; AFPTS GESTATIONAL AGE 16.7 WEEKS; AFPTS INSULIN DEP DIABETIC? NO; AFPTS MATERNAL WT 255 LBS; ALPHA-FETOPROTEIN RACE CAUCASIAN=W; ESTRIOL MULTIPLE OF MEDIAN 1.12; HISTORY OF NTD NO; INHIBIN A 106 PG/ML; REPEAT SAMPLE? NO; hCG MULTIPLE OF MEDIAN 0.78
== END | disposition home or self-care (01) ==
LOC: C.LAB1850 15:06
PROVIDERS: ATTEND Obstetrics & Gynecology
DX: Z34.82 Encounter for supervision of other normal pregnancy, second trimester (principal)

== ENCOUNTER 2016-07-20 19:51 | Emergency (ER) | payer OTHER ==
[~2016-07-20] VITALS: Ht 167.6 cm; Wt 118.3 kg
[2016-07-20 19:55] VITALS: TEMP 36.8; Ht 167.6 cm; Wt 118.3 kg
--- NOTE | 2016-07-20 20:39 | DIAGNOSTIC IMAGING REPORT ---
RIGHT FOOT MIN 3 VIEWS ROUTINE CLINICAL HISTORY: r/o fx right foot. Door closed on right foot. Right trauma. Pain. COMPARISON: None. DISCUSSION: The bones and joint spaces appear intact. There is no evidence of fracture, dislocation or bony disease. Mild soft tissue edema IMPRESSION: Mild soft tissue edema. No acute bony abnormality. Electronically signed by: Glen Schwartz M.D. 07/20/2016 8:38 PM Dictated Date/Time: 07/20/2016 8:37 PM
--- NOTE | 2016-07-20 21:29 | EMERGENCY ROOM VISIT NOTE ---
ED Visit Note First contact with patient: 20:01 CHIEF COMPLAINT: Right foot pain HISTORY OF PRESENT ILLNESS: This 21-year-old female patient presents to the emergency department complaining of swelling and pain in the right foot at rest and worse with weight bearing. The patient states that she was closing a door and the edge hit the top of her foot, caught her fifth toe and pulled back on it. This happened 2 days ago. She states the pain has been getting worse. The patient rates the pain as achy/throbbing and 6/10. The patient has had minimal relief of the pain with ice. The patient is able to walk. No numbness or weakness. No ankle pain. There are no lacerations of the foot. The patient is able to move all of their toes and their ankle without pain. No previous fracture to this foot. Patient does mention that she is 18 weeks , so has been avoiding any medications for the pain. REVIEW OF SYSTEMS: GENERAL: A 6 system review of systems was completed with positives and pertinent negatives in the HPI. ALLERGIES: See body of chart MEDICATIONS: vitamins PMH: See body of chart. PHYSICAL EXAM: Vital Signs: Reviewed Nurse's notes, vital signs stable. GENERAL : Awake and alert, in no acute distress, but appears in pain, well-developed, well-nourished. MUSCULOSKELATAL: There is no visual deformity of the right foot. There is no erythema mild swelling and ecchymosis. There is no warmth. There is tenderness and swelling over the lateral aspect of the right foot. There is no tenderness over the lateral or medial malleolus. No tenderness of the tib/fib. The range of motion of the right foot is intact. There is no tenderness over the plantar fascia. The skin is intact and there are no lacerations or puncture wounds. Dorsalis pedis pulse 2+. Capillary refill less than 2 seconds. EMERGENCY DEPARTMENT COURSE: I examined the patient. An X-ray of the right foot was reviewed by myself and read by the radiologist and reveals mild soft tissue swelling, no acute fracture or bony abnormality. The patient was discharged home in good condition. RIGHT FOOT MIN 3 VIEWS ROUTINE CLINICAL HISTORY: r/o fx right foot. Door closed on right foot. Right trauma. Pain. COMPARISON: None. DISCUSSION: The bones and joint spaces appear intact. There is no evidence of fracture, dislocation or bony disease. Mild soft tissue edema IMPRESSION: Mild soft tissue edema. No acute bony abnormality. Problem List Medical Problems: (1) Abdominal pain Status: Resolved (2) Abdominal pain Status: Resolved (3) Abdominal pain Status: Resolved (4) Abdominal pain Status: Resolved (5) Active labor at term Status: Resolved (6) Asthma Status: Chronic (7) Asthma exacerbation Status: Resolved (8) Asthma exacerbation Status: Resolved (9) Asthma with exacerbation Status: Resolved (10) Back pain Status: Resolved (11) Back pain Status: Resolved (12) Bronchitis Status: Resolved (13) Chest pain Status: Resolved (14) Closed head injury Status: Resolved (15) Concussion Status: Resolved (16) Depression Status: Chronic (17) Dizziness Status: Resolved (18) Encounter for test Status: Resolved (19) First trimester Status: Resolved (20) First trimester Status: Resolved (21) Head injury Status: Resolved (22) Irregular contractions Status: Resolved (23) Low back pain Status: Resolved (24) Low back pain Status: Resolved (25) Migraine Status: Chronic (26) Nausea and vomiting of , antepartum Status: Resolved (27) Ovarian cyst Status: Resolved (28) Ovarian cyst, follicular Status: Resolved (29) Positive test Status: Resolved (30) Status: Resolved (31) , first Status: Resolved (32) Third trimester Status: Resolved (33) Third trimester Status: Resolved (34) Threatened miscarriage Status: Resolved (35) Urinary tract infection Status: Resolved (36) Viral syndrome Status: Resolved Surgical Problems: (1) History of tonsillectomy Status: Resolved Current/Historical Medications Scheduled Vit W/ Ferrous Fumara (), 1 TAB PO DAILY Scheduled PRN Albuterol Hfa (Ventolin Hfa), 2 PUFFS INH Q6H PRN for Shortness of Breath Allergies Coded Allergies: Dextromethorphan (Verified Allergy, Mild, RASH TO THE DYE IN DAYQUIL, ) Guaifenesin (Verified Allergy, Mild, RASH TO THE DYE IN DAYQUIL, 06/17/16) [place] (Verified Allergy, Mild, burning throat, 06/17/16) Pseudoephedrine (Verified Allergy, Mild, RASH TO THE DYE IN DAYQUIL, ) Uncoded Allergies: DYE (Allergy, Unknown, RASH, 04/18/16) Vital Signs Date Time Temp Pulse Resp B/P Pulse Ox O2 Delivery O2 Flow Rate FiO2 07/20/16 21:40 65 20 110/67 100 07/20/16 19:55 36.8 69 18 142/87 100 Room Air Departure Information Dispostion Home / Self-Care Condition GOOD Referrals Katarina Schultz C.R.N.P (PCP) Patient Instructions ED Contusion Foot, [facility] Additional Instructions You may apply ice or heat to the area of pain on your foot for comfort. Keep the foot elevated as much as possible. You may take Tylenol 500 mg mg every 4 hours for the pain, but should try to limit this as you are . Follow up with family doctor or orthopedic surgeon if symptoms continue to persist in 5-7 days.
[2016-07-20 21:40] VITALS: BP 110/67; PULSE 65; O2SAT 100
--- NOTE | 2016-07-24 07:48 | EDITING REQUIRED CODING QUERY ---
TREATMENT RENDERED WITHOUT A DIAGNOSIS 96 To promote full compliance with coding requirements relating to patient care, physician participation is requested in all cases of life guard uncertainty. Please assist us with the question(s) below: DOS 07/20/16 Coding Question: Please document the Final Diagnosis for this patient Provider Response: Thank you Chiquita [place]
[2016-10-27] MEDS ORDERED: ONDA4TAB46 PO (03:00)
== END 2016-07-20 21:41 | disposition home or self-care (01) ==
LOC: C.EDB 19:51 → C.EDD 21:41
DX: S90.31XA Contusion of right foot, initial encounter (principal); W22.8XXA Striking against or struck by other objects, initial encounter; J45.909 Unspecified asthma, uncomplicated; F32.9 Major depressive disorder, single episode, unspecified; Z3A.18 18 weeks gestation of pregnancy; Z79.899 Other long term (current) drug therapy

== ENCOUNTER 2016-08-17 17:50 | Outpatient (CLI) | payer OTHER ==
[2016-08-17 19:33] LABS: URINE APPEARANCE CLEAR (CLEAR); URINE BILIRUBIN NEG (NEG); URINE COLOR YELLOW; URINE EPITHELIAL CELL AUTO >30 /lpf (0-5); URINE NITRITE NEG (NEG); URINE SPECIFIC GRAVITY 1.032 (1.000-1.030); UROBILINOGEN NEG (NEG); ZZUR CULT IF INDIC CLEAN CATCH NO
[2016-08-17 19:36] LABS: MANUAL MICROSCOPIC REQUIRED? NO; REVIEW REQ? NO
[2016-10-27] MEDS ORDERED: ONDA4TAB46 PO (03:00)
== END 2016-08-17 19:10 | disposition home or self-care (01) ==
LOC: C.LD 17:50 → C.OPB 17:50
PROVIDERS: ATTEND Obstetrics & Gynecology
DX: O99.89 Other specified diseases and conditions complicating pregnancy, childbirth and the puerperium (principal); M54.9 Dorsalgia, unspecified; O99.212 Obesity complicating pregnancy, second trimester; Z3A.23 23 weeks gestation of pregnancy

== ENCOUNTER 2016-09-07 02:33 | Outpatient (CLI) | payer OTHER ==
[~2016-09-07] VITALS: Ht 167.6 cm; Wt 114.3 kg
[2016-09-07 03:01] VITALS: Ht 167.6 cm; Wt 114.3 kg
[2016-10-27] MEDS ORDERED: ONDA4TAB46 PO (03:00)
== END 2016-09-07 03:25 ==
LOC: C.LD 02:33 → C.OPB 02:33
PROVIDERS: ATTEND Obstetrics & Gynecology
DX: O26.892 Other specified pregnancy related conditions, second trimester (principal); N89.8 Other specified noninflammatory disorders of vagina; Z3A.26 26 weeks gestation of pregnancy

== ENCOUNTER → 2016-09-20 | Outpatient (CLI) | payer OTHER ==
[~2016-09-20] MED LIST changes: -FLUO20CA35 PO; -ONDA4TAB10 SL
[2016-09-20 16:40] LABS: HEMATOCRIT 42.2 % (37-47)
[2016-09-20 17:28] LABS: URINE APPEARANCE TURBID (CLEAR); URINE BILIRUBIN NEG (NEG); URINE COLOR DK YELLOW; URINE EPITHELIAL CELL AUTO >30 /lpf (0-5); URINE NITRITE NEG (NEG); URINE SPECIFIC GRAVITY 1.026 (1.000-1.030); UROBILINOGEN NEG (NEG)
[2016-09-20 17:30] LABS: MANUAL MICROSCOPIC REQUIRED? NO; REVIEW REQ? NO
[2016-09-20 18:54] LABS: GTGD 50 Grams
== END | disposition home or self-care (01) ==
LOC: C.LAB1850 14:59
PROVIDERS: ATTEND Obstetrics & Gynecology
DX: Z34.82 Encounter for supervision of other normal pregnancy, second trimester (principal)

== ENCOUNTER → 2016-10-18 | Outpatient (CLI) | payer OTHER | END | disposition home or self-care (01) | LOC: C.LABPVFM 16:08 | PROVIDERS: ATTEND Nurse Practitioner | DX: N39.0 Urinary tract infection, site not specified (principal) ==

== ENCOUNTER 2016-10-27 19:06 | Emergency (ER) | payer OTHER ==
[~2016-10-27] VITALS: Ht 167.6 cm; Wt 113.0 kg
[~2016-10-27 19:06] MED LIST changes: -NITR-5 PO; -PREN1TAB29 PO; -PROM25TA9 PO; -VNTHFA/IN INH
[2016-10-27 19:24] VITALS: TEMP 36.5; Ht 167.6 cm; Wt 113.0 kg
[2016-10-27] MEDS ORDERED: SODIUM CHLORIDE 0.9% 1000ML 500 ML IV STA (20:22)
--- NOTE | 2016-10-27 20:46 | EMERGENCY ROOM VISIT NOTE ---
History Report prepared by Jessica: Brook Ryan Under the Supervision of: Dr. Marvin Jaramillo M.D. First contact with patient: 20:21 Chief Complaint: CARDIAC ASSESSMENT Stated Complaint: INTERMITENT HEART RYTHYM, HIGH BPM, DIZZY, SOB History of Present Illness The patient is a 21 year old female who presents to the Emergency Room with complaints of intermittent central chest pain that began several days ago. She states that she rates her discomfort as a 5/10 in severity. The patient states that she is currently 33 weeks , noting that this is her second . She states that she consulted her fundraising sale representative today prior to coming to the emergency department and explained her symptoms. The patient states that she has intermittently been experiencing chest pain that lasts approximately 30 minutes at a time. She states that with each chest pain episode, she noticed 3- 5 minute bouts of heart palpitations. The patient states that she has tried using her albuterol inhaler that she is prescribed for her asthma, but denies any relief of her symptoms. She states that her symptoms come on randomly. The patient denies this ever happening in the past and denies following with cardiology. She denies any personal history of PEs or DVTs. The patient denies any recent prolonged travel. She reports a family history of blood clots. The patient states that she recently finished antibiotic treatment for a UTI. She states that she believes she developed a yeast infection, noting vaginal irritation and itchiness. The patient additionally reports "a weird feeling in her upper right arm and upper right leg." She denies any leg swelling. Source of History: patient Onset: several days ago Position: chest (central) Symptom Intensity: 5/10 Timing: intermittent Note: Associated symptoms: heart palpitations Review of Systems See HPI for pertinent positives & negatives. A total of 10 systems reviewed and were otherwise negative. Past Medical & Surgical Medical Problems: (1) Abdominal pain (2) Abdominal pain (3) Abdominal pain (4) Abdominal pain (5) Active labor at term (6) Asthma (7) Asthma exacerbation (8) Asthma exacerbation (9) Asthma with exacerbation (10) Back pain (11) Back pain (12) Bronchitis (13) Chest pain (14) Closed head injury (15) Concussion (16) Cramping affecting , antepartum (17) Depression (18) Dizziness (19) Encounter for test (20) First trimester (21) First trimester (22) Head injury (23) Irregular contractions (24) Low back pain (25) Low back pain (26) Migraine (27) Nausea and vomiting of , antepartum (28) Ovarian cyst (29) Ovarian cyst, follicular (30) Positive test (31) (32) with 23 completed weeks gestation (33) , first (34) Third trimester (35) Third trimester (36) Threatened miscarriage (37) Urinary tract infection (38) vaginal protrusion (39) vaginal protrusion (40) Viral syndrome Surgical Problems: (1) History of tonsillectomy Family History Diabetes mellitus FH: Crohn's disease FH: cancer FH: gallbladder disease FH: heart disease Hypertension Kidney disease Kidney stones Seizures Social History Smoking Status: Never Smoker Alcohol Use: none Drug Use: none Marital Status: in relationship Housing Status: lives with friends Occupation Status: employed Current/Historical Medications Scheduled Nitrofurantoin Monohyd Macrocr (Macrobid), 100 MG PO BID Vit W/ Ferrous Fumara (), 1 TAB PO DAILY Scheduled PRN Albuterol Hfa (Ventolin Hfa), 2 PUFFS INH Q6H PRN for Shortness of Breath Ondansetron Hcl (Zofran), 4 MG PO UD PRN for Nausea Allergies Coded Allergies: Dextromethorphan (Verified Allergy, Mild, RASH TO THE DYE IN DAYQUIL, ) Guaifenesin (Verified Allergy, Mild, RASH TO THE DYE IN DAYQUIL, 06/17/16) [place] (Verified Allergy, Mild, burning throat, 06/17/16) Pseudoephedrine (Verified Allergy, Mild, RASH TO THE DYE IN DAYQUIL, ) Uncoded Allergies: DYE (Allergy, Unknown, RASH, 04/18/16) Physical Exam Vital Signs Date Time Temp Pulse Resp B/P (MAP) Pulse Ox O2 Delivery O2 Flow Rate FiO2 10/27/16 23:25 79 24 116/69 98 10/27/16 23:01 79 24 116/69 98 Room Air 10/27/16 22:35 78 22 114/70 99 Room Air 10/27/16 21:01 80 24 129/81 99 Room Air 10/27/16 20:59 74 10/27/16 20:53 77 24 120/91 98 Room Air 10/27/16 20:46 Room Air 10/27/16 19:24 36.5 92 18 120/78 98 Room Air Physical Exam GENERAL: Patient is in no acute distress. HEENT: No acute trauma, normocephalic atraumatic, mucous membranes moist, no nasal congestion, no scleral icterus. NECK: No stridor, no adenopathy, no meningismus, trachea is midline. CHEST: Tender to midsternal chest wall. LUNGS: Clear to auscultation bilaterally, no wheeze, no rhonchi, breath sounds equal. HEART: Without murmurs gallops or rubs, regular rate and rhythm. ABDOMEN: Gravid uterus. Soft, nontender, bowel sounds positive, no hernias, no peritonitis. EXTREMITIES: No cyanosis or edema, full range of motion of all the joints without pain or difficulty, no signs for acute trauma. NEUROLOGIC: Oriented x 3, no acute motor or sensory deficits, no focal weakness. SKIN: No rash, no jaundice, no diaphoresis. Medical Decision & Procedures ER Provider Diagnostic Interpretation: Radiology results as stated below per my review and radiologist interpretation: CHEST ONE VIEW PORTABLE CLINICAL HISTORY: Chest pain. 30 weeks . COMPARISON STUDY: Chest radiograph August 23, 2014. TECHNIQUE: The patient's abdomen and pelvis were double shielded due to . Portable upright AP chest radiograph was obtained. FINDINGS: The lung volumes are normal. Lungs are clear. No pneumothorax or pleural effusion is present. Pulmonary vascularity is normal. Cardiomediastinal silhouette is unremarkable. IMPRESSION: No acute cardiopulmonary findings. Electronically signed by: Jak Valle M.D. 10/27/2016 8:58 PM Dictated Date/Time: 10/27/2016 8:[address] ANGIOGRAPHY OF THE CHEST, PULMONARY EMBOLUS PROTOCOL CLINICAL HISTORY: Shortness of breath. Dizziness. COMPARISON STUDY: Chest CT June 19, 2003 pain and chest radiograph performed earlier today. TECHNIQUE: The patient's abdomen and pelvis were triple shielded due to . Following IV administration of 73 mL of Optiray-320, helical axial images of the chest were obtained utilizing the pulmonary embolus protocol. Maximal intensity projections and sagittal and coronal reformats were viewed on an independent 3D workstation. IV contrast was administered without complication. A dose lowering technique was utilized adhering to the principles of ALARA. CT DOSE: 506.20 mGy.cm FINDINGS: No pulmonary emboli are identified. There is no evidence of thoracic aortic dissection. Borderline cardiomegaly is noted. No pneumothorax or pleural effusion is present. There is no consolidation to suggest pneumonia. Central airways are patent. There is no pneumomediastinum. No enlarged axillary, mediastinal or hilar lymph nodes are present. Visualized portions of the upper abdomen demonstrate mild splenomegaly which is similar to exam of June 18, 2013. IMPRESSION: 1. No pulmonary emboli identified. 2. Borderline cardiomegaly. 3. No consolidation to suggest pneumonia. Electronically signed by: Jak Valle M.D. 10/27/2016 10:37 PM Dictated Date/Time: 10/27/2016 10:30 PM Laboratory Results 10/27/16 20:50 10/27/16 20:50 Test 10/27/16 20:40 10/27/16 20:50 10/27/16 20:58 Urine Color DK YELLOW Urine Appearance CLOUDY (CLEAR) Urine pH 5.5 (4.5-7.5) Urine Specific [place] 1.032 (1.000-1.030) Urine Protein 1+ (NEG) Urine Glucose (UA) NEG (NEG) Urine Ketones 1+ (NEG) Urine Occult Blood NEG (NEG) Urine Nitrite POS (NEG) Urine Bilirubin NEG (NEG) Urine Urobilinogen NEG (NEG) Urine Leukocyte Esterase TRACE (NEG) Urine WBC (Auto) 5-10 /hpf (0-5) Urine RBC (Auto) 0-4 /hpf (0-4) Urine Hyaline Casts (Auto) 1-5 /lpf (0-5) Urine Epithelial Cells (Auto) >30 /lpf (0-5) Urine Bacteria (Auto) 1+ (NEG) Urine Crystals CALCIUM OXALATE (NONE Urine Pathogenic Casts /lpf (0) Urine Mucus PRESENT (NONE PRSENT) Urine Yeast (Auto) (NONE PRSENT) Red Blood Count 4.52 M/uL (4.2-5.4) Mean Corpuscular Volume 86.7 fL (80-100) Mean Corpuscular Hemoglobin 29.4 pg (25-34) Mean Corpuscular Hemoglobin Concent 33.9 g/dl (32-36) RDW Standard Deviation 41.7 fL (36.4-46.3) RDW Coefficient of Variation 13.1 % (11.5-14.5) Mean Platelet Volume 11.3 fL (7.4-10.4) Prothrombin Time 9.8 SECONDS (9.0-12.0) Prothromb Time International Ratio 0.9 (0.9-1.1) Activated Partial Thromboplast Time 27.0 SECONDS (21.0-31.0) Partial Thromboplastin Ratio 1.0 Anion Gap 6.0 mmol/L (3-11) Est Creatinine Clear Calc Drug Dose 190.7 ml/min Estimated GFR () > 150.0 Estimated GFR (Non- 131.2 BUN/Creatinine Ratio 9.8 (10-20) Calcium Level 8.8 mg/dl (8.5-10.1) Total Bilirubin 0.2 mg/dl (0.2-1) Aspartate Amino Transf (AST/SGOT) 16 U/L (15-37) Alanine Aminotransferase (ALT/SGPT) 18 U/L (12-78) Alkaline Phosphatase 119 U/L (45-117) Troponin I < 0.015 ng/ml (0-0.045) Total Protein 6.6 gm/dl (6.4-8.2) Albumin 2.7 gm/dl (3.4-5.0) Globulin 3.9 gm/dl (2.5-4.0) Albumin/Globulin Ratio 0.7 (0.9-2) Chemistry Specimen Hemolysis Bedside D-Dimer > 450 ng/mlFEU (0-450) Laboratory results reviewed by me. Medications Administered Medications (Trade) Dose Ordered Sig/Froylan Route Start Time Stop Time Status Last Admin Dose Admin Sodium Chloride 500 ml @ 999 mls/hr Q31M STAT IV 10/27/16 20:22 10/27/16 20:52 DC 10/27/16 20:53 999 MLS/HR Nitrofurantoin Macrocrystals (Macrobid Cap) 100 mg ONE ONCE PO 10/27/16 23:15 10/27/16 23:16 DC 10/27/16 23:21 100 MG ECG Indication: chest pain, palpitations Rate (beats per minute): 75 Rhythm: normal sinus Findings: no acute ischemic change, no ectopy ED Course 2021: The patient was evaluated in room C3. A complete history and physical exam was performed. Ordered Sodium Chloride 500 ml @ 999 mls/hr IV. 2143: I reevaluated the patient and she is resting comfortably. I discussed the exam findings with her. I discussed the risks and benefits of a CT scan. She will have a CT scan. 2249: I reevaluated the patient and she is doing well. I discussed the exam findings with her and I discussed the treatment plan. She verbalized complete understanding and agreement. She is ready to go home 2315: Ordered Macrobid Cap 100 mg PO. Medical Decision The patient is a 21 year old female who presents to the ED with complaints of chest pain. Differential diagnoses considered include musculoskeletal pain, dysrhythmia, electrolyte imbalance, UTI, cardiac ischemia, PE, aortic dissection , pneumonia. There is a mild leukocytosis, this could be consistent with infection or just her . No concerning anemia. No significant electrolyte abnormality, kidney failure or hepatitis. Urinalysis is suggestive of infection. Urine culture is pending. EKG shows a sinus rhythm, no acute ischemia. Cardiac enzyme testing times one is not consistent with acute cardiac injury. Chest x- ray does not show pneumonia or CHF. D-dimer testing was positive. Chest CT does not show PE, no pneumonia. The patient was given IV saline. She was given oral Macrobid. She was reassured by her testing. She is being discharged home. Patient presents with chest pain and palpitations. Her chest pain does seem reproducible on exam. She is being discharged with outpatient follow-up and possibly Holter monitor testing. She will be discharged on Macrobid. I did discuss the use of Macrobid with the pharmacist. The patient was encouraged to return if feeling worse. She was reassured. Impression Primary Impression: Anterior chest wall pain Additional Impressions: Palpitations UTI (urinary tract infection) Scribe Attestation The scribe's documentation has been prepared under my direction and personally reviewed by me in its entirety. I confirm that the note above accurately reflects all work, treatment, procedures, and medical decision making performed by me. Departure Information Dispostion Home / Self-Care Prescriptions Nitrofurantoin Monohyd Macrocr (Macrobid) 100 Mg Cap 100 MG PO BID, #14 CAP Prov: Marvin Jaramillo M.D. 10/27/16 Referrals No Doctor, Assigned (PCP) Forms IMPORTANT VISIT INFORMATION Patient Instructions My [facility] Additional Instructions rest tylenol for pain if needed heat to the chest wall will help stay well hydrated macrobid 2x per day for 1 week follow with hortensia nelson and ob for a possible holter monitor if symptoms persist return if worsening no clot by our imaging today Problem Qualifiers
--- NOTE | 2016-10-27 20:59 | DIAGNOSTIC IMAGING REPORT ---
CHEST ONE VIEW PORTABLE CLINICAL HISTORY: Chest pain. 30 weeks . COMPARISON STUDY: Chest radiograph August 23, 2014. TECHNIQUE: The patient's abdomen and pelvis were double shielded due to . Portable upright AP chest radiograph was obtained. FINDINGS: The lung volumes are normal. Lungs are clear. No pneumothorax or pleural effusion is present. Pulmonary vascularity is normal. Cardiomediastinal silhouette is unremarkable. IMPRESSION: No acute cardiopulmonary findings. Electronically signed by: Jak Valle M.D. 10/27/2016 8:58 PM Dictated Date/Time: 10/27/2016 8:57 PM
[2016-10-27 21:17] LABS: HEMATOCRIT 39.2 % (37-47); MEAN CELL VOLUME 86.7 fL (80-100); MEAN CORPUSCULAR HEMOGLOBIN 29.4 pg (25-34); MEAN CORPUSCULAR HGB CONC 33.9 g/dl (32-36); MEAN PLATELET VOLUME 11.3 fL (7.4-10.4); PLATELET COUNT 239 K/uL (130-400); RED BLOOD COUNT 4.52 M/uL (4.2-5.4); WHITE BLOOD COUNT 13.79 K/uL (4.8-10.8)
[2016-10-27 21:25] LABS: INR 0.9 (0.9-1.1); PROTHROMBIN TIME (PATIENT) 9.8 SECONDS (9.0-12.0)
[2016-10-27 21:50] LABS: URINE APPEARANCE CLOUDY (CLEAR); URINE COLOR DK YELLOW; URINE EPITHELIAL CELL AUTO >30 /lpf (0-5); URINE NITRITE POS (NEG); URINE PH 5.5 (4.5-7.5); URINE SPECIFIC GRAVITY 1.032 (1.000-1.030); UROBILINOGEN NEG (NEG)
[2016-10-27 21:50] LABS: ALB/GLOB RATIO 0.7 (0.9-2); ALKALINE PHOSPHATASE 119 U/L (45-117); ALT/SGPT 18 U/L (12-78); AST/SGOT 16 U/L (15-37); BLOOD UREA NITROGEN 6 mg/dl (7-18); BUN/CREATININE RATIO 9.8 (10-20); CALCIUM 8.8 mg/dl (8.5-10.1); CARBON DIOXIDE 26 mmol/L (21-32); CHLORIDE 106 mmol/L (98-107); GLUCOSE 82 mg/dl (70-99); POTASSIUM 3.6 mmol/L (3.5-5.1); SODIUM 138 mmol/L (136-145)
[2016-10-27 21:57] LABS: MANUAL MICROSCOPIC REQUIRED? NO; REVIEW REQ? YES; URINE BILIRUBIN NEG (NEG)
[2016-10-27] MEDS ORDERED: OPTIRAY 320 IV PRN (22:00)
[2016-10-27 22:06] LABS: URINE MUCUS PRESENT (NONE PRSENT)
--- NOTE | 2016-10-27 22:38 | DIAGNOSTIC IMAGING REPORT ---
CT ANGIOGRAPHY OF THE CHEST, PULMONARY EMBOLUS PROTOCOL CLINICAL HISTORY: Shortness of breath. Dizziness. COMPARISON STUDY: Chest CT June 19, 2003 pain and chest radiograph performed earlier today. TECHNIQUE: The patient's abdomen and pelvis were triple shielded due to . Following IV administration of 73 mL of Optiray-320, helical axial images of the chest were obtained utilizing the pulmonary embolus protocol. Maximal intensity projections and sagittal and coronal reformats were viewed on an independent 3D workstation. IV contrast was administered without complication. A dose lowering technique was utilized adhering to the principles of ALARA. CT DOSE: 506.20 mGy.cm FINDINGS: No pulmonary emboli are identified. There is no evidence of thoracic aortic dissection. Borderline cardiomegaly is noted. No pneumothorax or pleural effusion is present. There is no consolidation to suggest pneumonia. Central airways are patent. There is no pneumomediastinum. No enlarged axillary, mediastinal or hilar lymph nodes are present. Visualized portions of the upper abdomen demonstrate mild splenomegaly which is similar to exam of June 18, 2013. IMPRESSION: 1. No pulmonary emboli identified. 2. Borderline cardiomegaly. 3. No consolidation to suggest pneumonia. Electronically signed by: Jak Valle M.D. 10/27/2016 10:37 PM Dictated Date/Time: 10/27/2016 10:30 PM
[2016-10-27] MEDS ORDERED: PREN1TAB29 PO (22:40)
[2016-10-27] MEDS ORDERED: VNTHFA/IN INH (22:40)
[2016-10-27] MEDS ORDERED: NITR-5 PO (23:08)
[2016-10-27] MEDS ORDERED: NITROFURANTOIN MONOHYDRATE 100 MG CAP PO ONE (23:15)
[2016-10-27 23:25] VITALS: BP 116/69; PULSE 79; O2SAT 98
== END 2016-10-27 23:26 | disposition home or self-care (01) ==
LOC: C.EDB 19:08 → C.EDC 23:26
DX: O99.89 Other specified diseases and conditions complicating pregnancy, childbirth and the puerperium (principal); R00.2 Palpitations; O23.43 Unspecified infection of urinary tract in pregnancy, third trimester; O99.513 Diseases of the respiratory system complicating pregnancy, third trimester; R07.89 Other chest pain; Z3A.33 33 weeks gestation of pregnancy; J45.909 Unspecified asthma, uncomplicated; Z83.3 Family history of diabetes mellitus; Z82.49 Family history of ischemic heart disease and other diseases of the circulatory system; Z80.9 Family history of malignant neoplasm, unspecified; Z84.1 Family history of disorders of kidney and ureter; Z82.0 Family history of epilepsy and other diseases of the nervous system

== ENCOUNTER 2016-11-05 00:36 | Emergency (ER) | payer OTHER ==
[~2016-11-05] VITALS: Ht 167.6 cm; Wt 113.9 kg
[~2016-11-05 00:36] MED LIST changes: +NITR-5 PO; +PREN1TAB29 PO; +VNTHFA/IN INH
[2016-11-05 00:41] VITALS: TEMP 36.6; Ht 167.6 cm; Wt 113.9 kg
[2016-11-05 01:54] LABS: BASO % 0.1 %; BASO ABS # 0.01 K/uL (0-0.2); COMPLETE YES; EOS % 0.5 %; HEMATOCRIT 37.3 % (37-47); IG% 0.6 %; LYMPH % 20.1 %; LYMPH ABS # 2.68 K/uL (1.2-3.4); MEAN CELL VOLUME 86.3 fL (80-100); MEAN CORPUSCULAR HEMOGLOBIN 30.1 pg (25-34); MEAN CORPUSCULAR HGB CONC 34.9 g/dl (32-36); MEAN PLATELET VOLUME 11.2 fL (7.4-10.4); MONO % 9.2 %; NEUT % 69.5 %; PLATELET COUNT 214 K/uL (130-400); RED BLOOD COUNT 4.32 M/uL (4.2-5.4); WHITE BLOOD COUNT 13.33 K/uL (4.8-10.8)
--- NOTE | 2016-11-05 01:54 | EMERGENCY ROOM VISIT NOTE ---
History Report prepared by Jessica: Michelle Nobles Under the Supervision of: Dr. Rosario Olivier D.O. First contact with patient: 00:59 Chief Complaint: CHEST PAIN Stated Complaint: CHEST PAIN/SHOULDER PAIN,TROUBLE BREATHING Nursing Triage Summary: Pt reports she is 34 weeks . She has been having irregular and fast heart beats. Pt was evaluated Sunday by OB. Cristhian pt developed midsternal chest pain. History of Present Illness The patient is a 21 year old female who presents to the Emergency Room with complaints of an episode of chest pain starting two hours ago. The patient states that she has been having irregular heart rhythms that go up to 150 beats per a minute. The patient states when this occurs she has generalized chest pain. She reports that this started two weeks ago and makes her short of breath. The patient reports that cristhian she was [place] [employer] when the pain started. She states that this pain is sharp and radiates into her shoulder. She notes that the pain is worse with deep breathing. She reports that her aunt called a doctor who told her to come to the ED. The patient complains of nausea, vomiting, and having blood in her vomit. She notes that she has had vomiting throughout this and that this is her second . The patient denies strenuous work and sleeping at the fair. She states she took Tylenol with little relief. She notes that she is trying to get an appointment with cardiology. Source of History: patient Onset: two hours ago Position: chest Quality: sharp Timing: other (episode) Modifying Factors (Worsening): breathing (deep) Associated Symptoms: + nausea, + vomiting Note: The patient complains of having blood in her vomit. The patient denies strenuous work and [place] the [place]. Review of Systems See HPI for pertinent positives & negatives. A total of 10 systems reviewed and were otherwise negative. Past Medical & Surgical Medical Problems: (1) Abdominal pain (2) Abdominal pain (3) Abdominal pain (4) Abdominal pain (5) Active labor at term (6) Asthma (7) Asthma exacerbation (8) Asthma exacerbation (9) Asthma with exacerbation (10) Back pain (11) Back pain (12) Bronchitis (13) Chest pain (14) Closed head injury (15) Concussion (16) Cramping affecting , antepartum (17) Depression (18) Dizziness (19) Encounter for test (20) First trimester (21) First trimester (22) Head injury (23) Irregular contractions (24) Low back pain (25) Low back pain (26) Migraine (27) Nausea and vomiting of , antepartum (28) Ovarian cyst (29) Ovarian cyst, follicular (30) Positive test (31) (32) with 23 completed weeks gestation (33) , first (34) Third trimester (35) Third trimester (36) Threatened miscarriage (37) Urinary tract infection (38) vaginal protrusion (39) vaginal protrusion (40) Viral syndrome Surgical Problems: (1) History of tonsillectomy (2) History of tonsillectomy (3) [place] teeth extracted Family History Diabetes mellitus FH: Crohn's disease FH: cancer FH: gallbladder disease FH: heart disease Hypertension Kidney disease Kidney stones Seizures Social History Smoking Status: Never Smoker Alcohol Use: none Drug Use: none Marital Status: in relationship Housing Status: lives with significant other Occupation Status: employed Current/Historical Medications Scheduled Nitrofurantoin Monohyd Macrocr (Macrobid), 100 MG PO BID Vit W/ Ferrous Fumara (), 1 TAB PO DAILY Scheduled PRN Albuterol Hfa (Ventolin Hfa), 2 PUFFS INH Q6H PRN for Shortness of Breath Ondansetron Hcl (Zofran), 4 MG PO UD PRN for Nausea Allergies Coded Allergies: Dextromethorphan (Verified Allergy, Mild, RASH TO THE DYE IN DAYQUIL, ) Guaifenesin (Verified Allergy, Mild, RASH TO THE DYE IN DAYQUIL, 06/17/16) [place]cutt (Verified Allergy, Mild, burning throat, 06/17/16) Pseudoephedrine (Verified Allergy, Mild, RASH TO THE DYE IN DAYQUIL, ) Uncoded Allergies: DYE (Allergy, Unknown, RASH, 04/18/16) Physical Exam Vital Signs Date Time Temp Pulse Resp B/P (MAP) Pulse Ox O2 Delivery O2 Flow Rate FiO2 11/05/16 03:13 87 19 109/64 96 11/05/16 02:30 67 18 114/63 98 Room Air 11/05/16 01:01 96 Room Air 11/05/16 01:00 90 11/05/16 00:41 36.6 97 16 116/80 99 Room Air Physical Exam General: Obese female, appears uncomfortable. HEENT: Head - normocephalic and atraumatic Pupils are equal, round, and reactive to light. Extraocular eye muscles are intact, and sclera are anicteric. Nose - moist nasal mucosa without discharge. Mouth - moist buccal mucosa. Oropharynx is nonerythematous and there is no tonsillar exudate or edema noted. Neck: Supple; no JVD, nuchal rigidity, cervical lymphadenopathy, or auscultated bruits. Heart: Regular rate and rhythm. There is a normal S1 and S2 with no murmurs, clicks, or gallops appreciated. Chest: Reproducible discomfort over the right side of anterior, upper chest. Lungs: Clear to auscultation bilaterally with no wheezes, rales, or rhonchi. Abdomen: Soft, completely nontender, nondistended, with good bowel sounds. There are no palpable pulsatile masses or hepatosplenomegaly. There is no guarding, rigidity, or rebound noted. Abdomen is gravid. Extremities: No evidence of cyanosis, clubbing, or edema. There are easily palpable peripheral pulses. Skin: warm and dry with good turgor and no rashes. Medical Decision & Procedures ER Provider Diagnostic Interpretation: CHEST X-RAY: Findings: The results were interpreted by me. No free air under the diaphragm. Narrow mediastinum. No obvious pulmonary pathology. Laboratory Results 11/05/16 01:35 Red Blood Count 4.32, Mean Corpuscular Volume 86.3, Mean Corpuscular Hemoglobin 30.1, Mean Corpuscular Hemoglobin Concent 34.9, Mean Platelet Volume 11.2, Neutrophils (%) (Auto) 69.5, Lymphocytes (%) (Auto) 20.1, Monocytes (%) (Auto) 9.2, Eosinophils (%) (Auto) 0.5, Basophils (%) (Auto) 0.1, Neutrophils # (Auto) 9.26, Lymphocytes # (Auto) 2.68, Monocytes # (Auto) 1.23, Eosinophils # (Auto) 0.07, Basophils # (Auto) 0.01 11/05/16 01:35 Test 11/05/16 01:35 White Blood Count 13.33 K/uL (4.8-10.8) Red Blood Count 4.32 M/uL (4.2-5.4) Hemoglobin 13.0 g/dL (12.0-16.0) Hematocrit 37.3 % (37-47) Mean Corpuscular Volume 86.3 fL (80-100) Mean Corpuscular Hemoglobin 30.1 pg (25-34) Mean Corpuscular Hemoglobin Concent 34.9 g/dl (32-36) Platelet Count 214 K/uL (130-400) Mean Platelet Volume 11.2 fL (7.4-10.4) Neutrophils (%) (Auto) 69.5 % Lymphocytes (%) (Auto) 20.1 % Monocytes (%) (Auto) 9.2 % Eosinophils (%) (Auto) 0.5 % Basophils (%) (Auto) 0.1 % Neutrophils # (Auto) 9.26 K/uL (1.4-6.5) Lymphocytes # (Auto) 2.68 K/uL (1.2-3.4) Monocytes # (Auto) 1.23 K/uL (0.11-0.59) Eosinophils # (Auto) 0.07 K/uL (0-0.5) Basophils # (Auto) 0.01 K/uL (0-0.2) RDW Standard Deviation 41.6 fL (36.4-46.3) RDW Coefficient of Variation 13.2 % (11.5-14.5) Immature Granulocyte % (Auto) 0.6 % Immature Granulocyte # (Auto) 0.08 K/uL (0.00-0.02) Anion Gap 5.0 mmol/L (3-11) Est Creatinine Clear Calc Drug Dose 216.8 ml/min Estimated GFR () > 150.0 Estimated GFR (Non- 136.7 BUN/Creatinine Ratio 13.5 (10-20) Calcium Level 8.3 mg/dl (8.5-10.1) Total Bilirubin 0.2 mg/dl (0.2-1) Direct Bilirubin < 0.1 mg/dl (0-0.2) Aspartate Amino Transf (AST/SGOT) 8 U/L (15-37) Alanine Aminotransferase (ALT/SGPT) 14 U/L (12-78) Alkaline Phosphatase 123 U/L (45-117) Total Creatine Kinase 30 U/L (26-192) Creatine Kinase MB 0.8 ng/ml (0.5-3.6) Creatine Kinase MB Ratio 2.7 (0-3.0) Troponin I < 0.015 ng/ml (0-0.045) Total Protein 5.8 gm/dl (6.4-8.2) Albumin 2.4 gm/dl (3.4-5.0) Thyroid Stimulating Hormone (TSH) 5.590 uIu/ml (0.300-4.500) Laboratory results per my review. ECG Indication: chest pain Rate (beats per minute): 81 Rhythm: normal sinus Findings: no acute ischemic change, no ectopy ED Course 0112: Past medical records reviewed. The patient was evaluated in room B6. A complete history and physical exam was performed. A twelve-lead EKG was obtained. An IV lock was initiated and labs are drawn as above. I did review the results of the CT scan of the chest performed last week. A chest x-ray was obtained. 0256: Upon reevaluation, she is feeling better. I discussed findings and results with her. She verbalized agreement of the treatment plan. The patient was discharged home. Medical Decision The patient is a 21 year old female who presents to the Emergency Room with complaints of an episode of chest pain starting two hours ago. Differential diagnoses include anxiety, costochondritis, pleurisy, PE, cardiac ischemia, cardiac dysrhythmia. LABS: White count 13.3 Stable H&H Normal renal function Glucose 80 LFTs normal Cardiac enzymes negative TSH slightly high at 5.5 The patient underwent a PE study 1 week ago which was negative. She is not tachycardic and has normal oxygen saturations. Her pain was clearly reproducible on physical exam. Her EKG was unremarkable. However, the patient to describe an episode of tachycardia while she was at the OB office. The physician there noted and is referring her to cardiology. I recommended that she keep that appointment. If symptoms worsen, she should return here to the emergency department. The patient had a moderately elevated TSH. I've asked her to follow-up with her PCP with regards to this. Impression Primary Impression: Right-sided chest wall pain Additional Impression: Hypothyroidism Scribe Attestation The scribe's documentation has been prepared under my direction and personally reviewed by me in its entirety. I confirm that the note above accurately reflects all work, treatment, procedures, and medical decision making performed by me. Departure Information Dispostion Home / Self-Care Referrals No Doctor, Assigned (PCP) Forms HOME CARE DOCUMENTATION FORM, IMPORTANT VISIT INFORMATION Patient Instructions My [facility] [employer] Additional Instructions Continue to use tylenol for pain. Follow up with OB for referral to Cardiology Return to the ER for worsening symptoms Rest. Follow up with PCP about hypothyroidism Problem Qualifiers Additional Impression: Hypothyroidism Hypothyroidism type: unspecified Qualified Codes: E03.9 - Hypothyroidism, unspecified
[2016-11-05 02:22] LABS: ALT/SGPT 14 U/L (12-78); AST/SGOT 8 U/L (15-37); BLOOD UREA NITROGEN 7 mg/dl (7-18); BUN/CREATININE RATIO 13.5 (10-20); CALCIUM 8.3 mg/dl (8.5-10.1); CARBON DIOXIDE 26 mmol/L (21-32); CHLORIDE 108 mmol/L (98-107); CREATININE 0.53 mg/dl (0.60-1.20); GLUCOSE 80 mg/dl (70-99); POTASSIUM 3.6 mmol/L (3.5-5.1); SODIUM 139 mmol/L (136-145)
[2016-11-05 02:33] LABS: ALKALINE PHOSPHATASE 123 U/L (45-117); CKMB/CK RATIO 2.7 (0-3.0)
[2016-11-05 03:13] VITALS: BP 109/64; PULSE 87; O2SAT 96
--- NOTE | 2016-11-05 08:03 | DIAGNOSTIC IMAGING REPORT ---
TWO VIEW CHEST CLINICAL HISTORY: Atypical chest pain. FINDINGS: PA and lateral chest radiographs are compared to chest x-ray and chest CT dated 10/27/2016. The cardiomediastinal silhouette is unremarkable. There is minimal bibasilar atelectasis The lungs and pleural spaces are otherwise clear. There is no pneumothorax. The bony thorax appears intact. IMPRESSION: No active disease in the chest and no change from recent prior studies. Electronically signed by: Marvin Porras M.D. 11/05/2016 8:02 AM Dictated Date/Time: 11/05/2016 8:01 AM
== END 2016-11-05 03:14 | disposition home or self-care (01) ==
LOC: C.EDB 00:38
DX: O26.893 Other specified pregnancy related conditions, third trimester (principal); Z3A.34 34 weeks gestation of pregnancy; R07.89 Other chest pain; E03.9 Hypothyroidism, unspecified; F32.9 Major depressive disorder, single episode, unspecified; J45.909 Unspecified asthma, uncomplicated; N83.209 Unspecified ovarian cyst, unspecified side; Z87.820 Personal history of traumatic brain injury; Z87.828 Personal history of other (healed) physical injury and trauma; Z87.440 Personal history of urinary (tract) infections; Z98.890 Other specified postprocedural states; Z88.8 Allergy status to other drugs, medicaments and biological substances; Z83.3 Family history of diabetes mellitus; Z83.79 Family history of other diseases of the digestive system; Z80.9 Family history of malignant neoplasm, unspecified; Z82.49 Family history of ischemic heart disease and other diseases of the circulatory system; Z84.1 Family history of disorders of kidney and ureter; Z82.0 Family history of epilepsy and other diseases of the nervous system

== ENCOUNTER → 2016-11-09 | Outpatient (CLI) | payer OTHER ==
[~2016-11-09] MED LIST changes: +PROM25TA9 PO
== END | disposition home or self-care (01) ==
LOC: C.LABPVFM 12:03
PROVIDERS: ATTEND Nurse Practitioner
DX: R94.6 Abnormal results of thyroid function studies (principal)

== ENCOUNTER → 2016-11-15 | Outpatient (CLI) | payer OTHER | END | disposition home or self-care (01) | LOC: C.LABPVFM 10:30 | PROVIDERS: ATTEND Nurse Practitioner | DX: R94.6 Abnormal results of thyroid function studies (principal) ==

== ENCOUNTER → 2016-11-22 | Outpatient (CLI) | payer OTHER | END | disposition home or self-care (01) | LOC: C.LABSPEC 17:46 | PROVIDERS: ATTEND Obstetrics & Gynecology | DX: Z34.83 Encounter for supervision of other normal pregnancy, third trimester (principal) ==

== ENCOUNTER 2016-11-29 22:56 | Inpatient (IN) | payer OTHER ==
[~2016-11-29] VITALS: Ht 167.6 cm; Wt 115.0 kg
[~2016-11-29 22:56] MED LIST changes: -PROM25TA9 PO
[2016-11-29] MEDS ORDERED: LACTATED RINGER'S 1000ML 1,000 ML IV PRN (23:06)
[2016-11-29] MEDS ORDERED: LACTATED RINGER'S 1000ML 1,000 ML IV SCH (23:06)
[2016-11-29 23:29] LABS: HEMATOCRIT 37.5 % (37-47); MEAN CELL VOLUME 87.2 fL (80-100); MEAN CORPUSCULAR HEMOGLOBIN 28.8 pg (25-34); MEAN CORPUSCULAR HGB CONC 33.1 g/dl (32-36); MEAN PLATELET VOLUME 11.1 fL (7.4-10.4); PLATELET COUNT 235 K/uL (130-400); WHITE BLOOD COUNT 11.07 K/uL (4.8-10.8)
[2016-11-29] MEDS ORDERED: PROM25TA9 PO (23:40)
[2016-11-29 23:41] VITALS: Ht 167.6 cm; Wt 115.0 kg
[2016-11-30] MEDS ORDERED: ONDANSETRON INJ 2 MG/ML 2 ML VIAL IV PRN (02:00)
[2016-11-30] MEDS ORDERED: ONDANSETRON INJ 2 MG/ML 2 ML VIAL ONE (02:12)
[2016-11-30] MEDS ORDERED: EpHEDrine SULFATE INJ 50 MG/ML AMP ONE (03:15)
[2016-11-30] MEDS ORDERED: FENTANYL 2MCG/ML ROPIV 1.25MG/ML 100ML BAG EPI ONE (03:15)
[2016-11-30] MEDS ORDERED: BUPIVACAINE 0.25% 30 ML VIAL ONE (03:15)
[2016-11-30] MEDS ORDERED: FENTANYL CITRATE INJ 50 MCG/1 ML 2 ML VIAL ONE (03:15)
[2016-11-30] MEDS ORDERED: NALOXONE HCL INJ 1 MG in SODIUM CHLORIDE 0.9% 1000ML 1,000 ML IV PRN (04:32)
[2016-11-30] MEDS ORDERED: LACTATED RINGER'S 1000ML 500 ML IV PRN (04:32)
[2016-11-30] MEDS ORDERED: FENTANYL 2MCG/ML ROPIV 1.25MG/ML 100ML BAG EPI PRN (04:45)
[2016-11-30] MEDS ORDERED: DiphenhydrAMINE HCL 50 MG/ML VIAL IV PRN (04:45)
[2016-11-30] MEDS ORDERED: NALBUPHINE HCL INJ 10 MG/ML AMP IV PRN (04:45)
[2016-11-30] MEDS ORDERED: NALOXONE HCL INJ 0.4 MG/1 ML VIAL/CARP IV PRN (04:45)
[2016-11-30] MEDS ORDERED: EpHEDrine SULFATE INJ 50 MG/ML AMP IV PRN (04:45)
[2016-11-30] MEDS ORDERED: OXYTOCIN 30 UNITS/500ML NSS IV ONE (05:29)
[2016-11-30] MEDS ORDERED: OXYTOCIN 30 UNITS/500ML NSS IV PRN (05:45)
[2016-11-30] MEDS ORDERED: SUPERCREAM 0.870 % 15GM JAR EXT PRN (05:45)
[2016-11-30] MEDS ORDERED: BENZOCAINE 20% AER SPR 82.5 GM CAN EXT PRN (05:45)
[2016-11-30] MEDS ORDERED: OXYCODONE/ACETAMINOPHEN 5-325 TAB PO PRN (05:45)
[2016-11-30] MEDS ORDERED: HYDROCORTISONE ACETATE 25 MG SUPP PR PRN (05:45)
[2016-11-30] MEDS ORDERED: ACETAMINOPHEN 325 MG TAB PO PRN (05:45)
[2016-11-30] MEDS ORDERED: LANOLIN OINT EXT PRN ×2 (05:45)
[2016-11-30] MEDS ORDERED: ACETAMINOPHEN/CODEINE 300/30MG TAB PO PRN (05:45)
--- NOTE | 2016-11-30 07:32 | Anesthesia Procedure Note ---
Anesthesia Epidural Removal Nt Date & Time Nov 30, 2016 at 07:31 Vital Signs Pain Intensity: 0.0 Notes Mental Status: alert / awake / arousable, participated in evaluation Nausea / Vomiting: adequately controlled Pain: adequately controlled Airway Patency, RR, SpO2: stable & adequate BP & HR: stable & adequate Hydration State: stable & adequate Neuraxial Anesthesia: was administered Anesthetic Complications: no major complications apparent, pt satisfied with anesthetic care Epidural: removed without complications, with tip intact
--- NOTE | 2016-11-30 07:46 | DELIVERY SUMMARY ---
DATE OF OPERATION: 11/30/2016 DELIVERY NOTE Laury arrived late in the night on 11/29/2016 and then delivered early in the morning on 11/30/2016. This was her second baby, uncomplicated at approximately 38 weeks. She was group B strep negative. The patient presented at 4 cm and then progressed to 5, received an epidural. Her water broke later at approximately 5 in the morning and she delivered soon afterwards by pushing over 1 contraction. The baby was delivered left occiput anterior position. There was a nuchal cord that was passed over the head. Fluid was clear. Live vigorous male infant. Cord clamped and cut. Cord gases obtained. Cord blood obtained. Placenta removed with gentle traction. There was no tearing. Estimated blood loss 250 mL. Sponge and instrument counts correct. I attest to the content of the Intraoperative Record and any orders documented therein. Any exception s are noted below.
[2016-11-30 08:20] VITALS: BP 137/81; PULSE 84; TEMP 37; O2SAT 98
[2016-11-30] MEDS: PRENATAL VITAMIN TAB PO SCH (08:51)
[2016-11-30] MEDS: DOCUSATE SODIUM 100 MG CAP PO SCH ×2 (08:51→20:04)
[2016-11-30] MEDS: IBUPROFEN 600 MG TAB PO PRN ×2 (08:51→12:53)
[2016-11-30 11:55] VITALS: BP 137/77; PULSE 82; TEMP 36.9; O2SAT 98
[2016-11-30] MEDS: ACETAMINOPHEN/CODEINE 300/30MG TAB PO PRN ×2 (16:39→22:28)
[2016-11-30 16:45] VITALS: BP 110/74; PULSE 61; TEMP 36.6; O2SAT 99
[2016-11-30 20:30] VITALS: BP 114/75; PULSE 73; TEMP 36.9; O2SAT 99
[2016-12-01] MEDS: IBUPROFEN 600 MG TAB PO PRN ×4 (00:19→13:23)
[2016-12-01 00:20] VITALS: BP 130/89; PULSE 83; TEMP 37.1; O2SAT 99
[2016-12-01 05:00] VITALS: BP 121/69; PULSE 84; TEMP 37; O2SAT 97
--- NOTE | 2016-12-01 06:56 | Progress Note ---
Subjective Dec 01, 2016. Subjective conversation w/ patient, physical exam, chart review, lab review Ambulation: ambulating normally Voiding: no voiding problems Passing Gas: Yes Diet Tolerance: Regular Diet Lochia: Moderate Feeding Type: Breast Feeding Pain: controlled Review of Systems Respiratory: No shortness of breath Cardiac: No chest pain Abdomen: No nausea, No vomiting Female : No dysuria Objective Vital Signs Date Time Temp Pulse Resp B/P (MAP) Pulse Ox O2 Delivery O2 Flow Rate FiO2 12/01/16 05:00 37.0 84 18 121/69 (86) 97 Room Air 12/01/16 00:20 37.1 83 18 130/89 (103) 99 Room Air 12/01/16 00:20 Room Air 11/30/16 20:30 36.9 73 16 114/75 (88) 99 Room Air 11/30/16 20:30 Room Air 11/30/16 16:45 Room Air 11/30/16 16:45 36.6 61 16 110/74 (86) 99 Room Air 11/30/16 11:55 36.9 82 18 137/77 (97) 98 Room Air 11/30/16 08:20 98 Room Air 11/30/16 08:20 37.0 84 20 137/81 (99) 98 Room Air Physical Exam General Appearance: WELL-APPEARING, WD/WN, NO APPARENT DISTRESS Respiratory/Chest: lungs clear, normal breath sounds, no respiratory distress Cardiovascular: regular rate, rhythm, no gallop Abdomen: normal bowel sounds, soft Fundus: Firm, Tender (appropriately tender), Relation to Umbilicus (1 below U) Extremities: no calf tenderness Laboratory Results Last 24 Hours Test 12/01/16 04:44 Assessment and Plan Post- Day#: 1 Continue Routine Care: - Vital Signs reviewed and WNL. - Hgb Pending. - Blood Type: O+, GBS -, Rubella Immune. - Pt is doing well clinically. - Encourage Ambulation, Monitor and Control pain with Motrin PRN, Resume regular diet, Monitor Lochia - Encourage Breast Feeding. - Pt counselled on discharge instructions. VU QUACH PGY1 FM RESIDENT Resident Physician Supervision Note: I interviewed and examined the patient. Discussed with Dr. Quach and agree with findings and plan as documented in the note. Any exceptions or clarifications are listed here: [None] Documented By: Ravi Pfeiffer Resident Tracking Resident Involvement: Resident Care Provided Care Provided: OB Delivery
--- NOTE | 2016-12-01 06:58 | Discharge Instructions ---
Discharge Instructions Date of Service Dec 01, 2016. Admission Reason for Admission: Normal Labor Discharge Discharge Diagnosis / Problem: DELIVERY VAGINAL Discharge Goals Goal(s): Routine recovery after delivery Medications Continue Dispensed Medications: supercream, dermaplast, tucks, lansinoh Activity Recommendations Activity Limitations: per Instructions/Follow-up section . Instructions / Follow-Up Instructions / Follow-Up ACTIVITY RECOMMENDATIONS: * Gradual return to full activity over the next 2-3 weeks. * No lifting - nothing heavier than baby over the next 2-3 weeks. * Do not engage in vigorous exercise, sexual activity or sports until cleared by your physician. * Do not drive or operate any motorized equipment until cleared by your physician. * You may shower/bathe daily. MEDICATIONS: For discomfort or pain, you may use Acetaminophen (Tylenol), Ibuprofen (Advil), or Naproxen (Aleve) following the package directions. For constipation you may use Colace following the package directions. BREAST CARE: If you are not breast feeding: * Wear a supportive bra 24 hours a day for one to two weeks. * Avoid stimulating your breasts and nipples as much as possible during the first few weeks after delivery. * When taking a shower, have the warm water hit your back, not breasts. * When your breasts feel full, apply ice packs. Usually three to four times a day helps ease the discomfort. * Take a mild pain medication (Tylenol / Motrin) when you are uncomfortable. If breast feeding: * Use breast milk to lubricate nipples. Lansinoh cream may be used for sore nipples. You do not need to remove cream prior to breast feeding. If using a different brand of cream, check the label for directions regarding removal of cream prior to nursing. * Wear a supportive bra. * If having problems with breasts or breast feeding, call a gift consultant or your health care provider. EPISIOTOMY CARE: After delivery, if you have an episiotomy (stitches), the following steps will ease discomfort and aid healing. * For the first 24 hours after delivery, place ice packs next to your episiotomy to help reduce swelling. * After the first 24 hour-period, sitz baths, either portable or in the tub, are suggested. A shower with a shower arm sprayed over the episiotomy may be comforting. * Aarti care should be done after each voiding and bowel movement. Squirt warm water from a plastic bottle over the perineum (region of the body between the anus and urinary opening) and pat dry. * Use Dermoplast to ease discomfort. Shake container. Cecil directly over the episiotomy. Place a Tucks on a clean sanitary pad next to your episiotomy. SPECIAL CARE INSTRUCTIONS: When you are discharged from the hospital, it is important for you to follow the instructions listed below: * During the first week at home, you should be able to care for yourself and your baby. In addition, the usual light household activities are encouraged. * Limit your activities to the way you feel. Do not try to clean the house or move furniture. Be sensible. * If you actively engage in sports and have done so up until the time of your delivery, you may resume these activities as soon as you feel able. This may take up to one month or even longer. Use good judgment. * Continue to take your vitamins for at least six weeks after the of your baby. * Your diet need not be limited unless you were on a special diet before your delivery. Breast-feeding mothers need around 2500 calories per day and at least 64-80 ounces of fluid per day (8 to 10 glasses). * You should eat foods from the four major food groups. Crash diets or fad diets are to be avoided. Eating lean meats, fresh fruits and vegetables, low-fat dairy products, high fiber foods and a regular exercise program, will help you get back to your pre- weight without putting your health at risk. * Constipation is sometimes a problem after delivery. Take a mild laxative as needed. If breast feeding, Milk of Magnesia is acceptable to use. You may use a suppository or Fleets enema if no episiotomy. * A daily shower or tub bath is suggested. Be sure to thoroughly and gently dry the perineum. * A bloody vaginal discharge will usually continue until around four weeks post . A small amount of bleeding may continue for as long as six weeks. Vaginal discharge changes from the bright red bleeding after delivery to pink then brownish and finally yellowish-pink before becoming white and disappearing. * Bleeding may increase with activity. Your first period may come in 4-8 weeks. If you are breast feeding, your period may be delayed even longer. * [place] (sex) can begin whenever both you and your partner feel comfortable and do not have any form of genital infection. It is recommended that you wait at least six weeks for internal and external healing to occur. If you have questions, please talk to your health care practitioner. A condom should be used to prevent infection and . * Foreplay, gentle intercourse and lubrication is very important the first several times to prevent pain. A water-based lubricant such as K-Y jelly or Astroglide may be used. * If you have RH negative blood and your baby is RH positive, you will receive RHOGAM by injection prior to discharge. The nurse will give you a card to keep with you that has the date and place that you received RHOGAM after delivery. * During your care, you had a Rubella screen done to check for the presence of rubella antibodies in your blood. If your test was negative, you will receive a Rubella vaccine prior to discharge. This vaccine may cause a fever, soreness at the injection site and flu-like symptoms. If these symptoms persist, notify your health care practitioner. is not advised for one month after a Rubella vaccine. * Verbalizes understanding of car seat law as reviewed with patient nursing. * Car Seat hand-out given and reviewed with patient by nursing. * Shaken baby information reviewed with patient by nursing. Call you doctor if: * Heavy bleeding (saturating several pads an hour) or passing clots the size of your fist. * A fever >101 degrees F (38.3 degrees C) on two occasions four hours apart and /or chills. * Unusual pain in the pelvic or vaginal areas. * "Baby Blues" lasting longer than two weeks. If you have any questions or concerns, call your health care practitioner at . FOLLOW UP VISIT: * Please call the office at to schedule a 6 week examination. It is important you keep this appointment. It is important for you to make arrangements for either yearly or twice yearly check-ups thereafter. Current Hospital Diet Patient's current hospital diet: Regular OB Diet Discharge Diet Recommended Diet: Regular Diet Pending Studies Studies pending at discharge: no Medical Emergencies . Who to Call and When: Medical Emergencies: If at any time you feel your situation is an emergency, please call 911 immediately. . Non-Emergent Contact Non-Emergency issues call your: Primary Care Provider . . "Provider Documentation" section prepared by Madina Quach. . VTE Core Measure Inpt VTE Proph given/why not?: Treatment not indicated Resident Tracking Resident Involvement: Resident Care Provided Care Provided: OB Delivery
[2016-12-01 07:44] LABS: HEMATOCRIT 36.6 % (37-47)
[2016-12-01 08:14] VITALS: BP 128/90; PULSE 66; TEMP 36.7
[2016-12-01] MEDS: PRENATAL VITAMIN TAB PO SCH (08:52)
[2016-12-01] MEDS: DOCUSATE SODIUM 100 MG CAP PO SCH (08:52)
[2016-12-01] MEDS ORDERED: DIPHTHERIA/TETANUS/PERTUSSIS 0.5 ML SYR/VIAL IM. ONE (09:00)
[2016-12-01 16:00] VITALS: BP_SYST 100; BP_SYST 124; BP_DIAS 63; BP_DIAS 79; PULSE 68; PULSE 75; TEMP 36.5; TEMP 36.9
[2016-12-01 19:40] VITALS: BP_DIAS 79; PULSE 75; TEMP 36.9
[2016-12-01] MEDS ORDERED: BISACODYL 5 MG TABEC PO SCH (20:00)
[2016-12-02] MEDS ORDERED: BISACODYL 10 MG SUPP PR PRN (07:00)
== END 2016-12-01 19:50 | disposition home or self-care (01) | DRG 775 ==
LOC: C.OPB 22:56 → C.LD 22:56 → C.OPB 23:07 → C.LD 23:07 → C.OBG 11-30 08:22
PROVIDERS: ADMIT Obstetrics & Gynecology; ATTEND Obstetrics & Gynecology
PROC: 10E0XZZ Delivery of Products of Conception, External Approach (ICD-10-PCS; principal; 2016-11-30)
DX: O69.81X0 Labor and delivery complicated by cord around neck, without compression, not applicable or unspecified (principal); Z3A.38 38 weeks gestation of pregnancy; Z37.0 Single live birth

== ENCOUNTER 2017-01-09 12:21 | Emergency (ER) | payer OTHER ==
[~2017-01-09] VITALS: Ht 167.6 cm; Wt 107.0 kg
[~2017-01-09 12:21] MED LIST changes: -NITR-5 PO; -VNTHFA/IN INH
[2017-01-09 12:36] VITALS: TEMP 37; Ht 167.6 cm; Wt 107.0 kg
[2017-01-09 13:36] LABS: URINE APPEARANCE CLEAR (CLEAR); URINE BILIRUBIN NEG (NEG); URINE COLOR ORANGE; URINE EPITHELIAL CELL AUTO 20-30 /lpf (0-5); URINE NITRITE NEG (NEG); URINE PH 5.5 (4.5-7.5); UROBILINOGEN NEG (NEG); ZZUR CULT IF INDIC CLEAN CATCH NO
[2017-01-09] MEDS ORDERED: FLUO20CA35 PO (13:39)
[2017-01-09 13:44] LABS: BASO % 0.2 %; BASO ABS # 0.02 K/uL (0-0.2); COMPLETE YES; EOS % 1.2 %; HEMATOCRIT 41.7 % (37-47); IG% 0.3 %; LYMPH % 24.5 %; LYMPH ABS # 2.24 K/uL (1.2-3.4); MEAN CELL VOLUME 85.3 fL (80-100); MEAN CORPUSCULAR HEMOGLOBIN 29.9 pg (25-34); MEAN PLATELET VOLUME 11.2 fL (7.4-10.4); MONO % 9.3 %; NEUT % 64.5 %; PLATELET COUNT 248 K/uL (130-400); RED BLOOD COUNT 4.89 M/uL (4.2-5.4); WHITE BLOOD COUNT 9.16 K/uL (4.8-10.8)
[2017-01-09 13:46] LABS: MANUAL MICROSCOPIC REQUIRED? NO; REVIEW REQ? NO
[2017-01-09 13:52] VITALS: O2SAT 97
[2017-01-09 13:56] LABS: PARTIAL THROMBOPLASTIN RATIO 1.2; PROTHROMBIN TIME (PATIENT) 10.7 SECONDS (9.0-12.0)
[2017-01-09 14:04] LABS: BUN/CREATININE RATIO 15.4 (10-20); CALCIUM 8.6 mg/dl (8.5-10.1); CREATININE 0.75 mg/dl (0.60-1.20); POTASSIUM 3.9 mmol/L (3.5-5.1)
[2017-01-09 14:14] LABS: ALB/GLOB RATIO 0.9 (0.9-2); THYROID STIMULATING HORMONE 2.46 uIu/ml (0.300-4.500)
--- NOTE | 2017-01-09 15:08 | DIAGNOSTIC IMAGING REPORT ---
ULTRASOUND OF THE PELVIS CLINICAL HISTORY: Heavy bleeding. Pelvic pain. 6 weeks . COMPARISON STUDY: Pelvic CT dated 11/30/2015. TECHNIQUE: Real-time, grayscale, and color flow sonography of the pelvis is performed transabdominally. Images are reviewed in the transverse and longitudinal planes. The endovaginal examination was deferred. FINDINGS: Uterus: The uterus is normal in size and echotexture, measuring 8.4 x 4.3 x 5.2 cm. Endometrium: The endometrium is normal in appearance, and the endometrial stripe is normal in thickness measuring up to 0.3 cm. No hypervascularity is seen on color imaging. Ovaries: The ovaries are normal in size and morphology. The right ovary measures 2.7 x 1.9 x 2.5 cm and the left ovary measures 2.2 x 1.9 x 2.3 cm. Small follicles are seen bilaterally. Normal Doppler waveforms are shown within both ovaries. Pelvis: There is no free fluid in the cul-de-sac. No concerning adnexal lesion is seen. IMPRESSION: No acute sonographic abnormality is identified in the pelvis on this transabdominal examination. Electronically signed by: Marvin Porras M.D. 01/09/2017 3:06 PM Dictated Date/Time: 01/09/2017 3:05 PM
--- NOTE | 2017-01-09 15:23 | EMERGENCY ROOM VISIT NOTE ---
History First contact with patient: 13:02 Chief Complaint: ED VAG BLEEDING Stated Complaint: HEAVY VAG. BLEEDING-6 WKS. POST , DIZZY History of Present Illness The patient is a 21 year old female who presents to the Emergency Room with complaints of vaginal bleeding for the past 2 weeks. Patient is 6 weeks who had a vaginal delivery at 38 weeks without complications per patient. Patient states about 2 weeks ago she started off with some spotting and over the past week and has gradually increased. Patient states the past 3 days the bleeding has been quite heavy. She has been passing clots. Patient states she feels lightheaded and has cramping to the suprapubic region, 4/10. It does not radiate. Nothing makes it better or worse. Patient called her OB doctor with no response. Patient denies chest pain, dyspnea, fever, chills, vomiting, diarrhea, urinary symptoms. Patient states she does she's with her thyroid. She states sometimes her levels or higher symptoms there are low. She has not followed up for this yet. Patient denies any bruising or known bleeding disorders. Review of Systems See HPI for pertinent positives & negatives. A total of 10 systems reviewed and were otherwise negative. Past Medical/Surgical History Medical Problems: (1) Abdominal pain (2) Abdominal pain (3) Abdominal pain (4) Abdominal pain (5) Active labor at term (6) Asthma (7) Asthma exacerbation (8) Asthma exacerbation (9) Asthma with exacerbation (10) Back pain (11) Back pain (12) Bronchitis (13) Chest pain (14) Closed head injury (15) Concussion (16) Cramping affecting , antepartum (17) Depression (18) Dizziness (19) Encounter for test (20) First trimester (21) First trimester (22) Head injury (23) Irregular contractions (24) Low back pain (25) Low back pain (26) Migraine (27) Nausea and vomiting of , antepartum (28) Normal labor (29) Ovarian cyst (30) Ovarian cyst, follicular (31) Positive test (32) (33) with 23 completed weeks gestation (34) , first (35) Third trimester (36) Third trimester (37) Threatened miscarriage (38) Urinary tract infection (39) vaginal protrusion (40) vaginal protrusion (41) Viral syndrome Surgical Problems: (1) History of tonsillectomy (2) History of tonsillectomy (3) [place] teeth extracted Family History Diabetes mellitus FH: Crohn's disease FH: cancer FH: gallbladder disease FH: heart disease Hypertension Kidney disease Kidney stones Seizures Social History Smoking Status: Never Smoker Alcohol Use: none Drug Use: none Marital Status: in relationship Housing Status: lives with significant other Occupation Status: employed Current/Historical Medications Scheduled PRN Albuterol Hfa (Ventolin Hfa), 2 PUFFS INH Q6H PRN for Shortness of Breath Miscellaneous Medications Fluoxetine (Prozac), Unknown Dose PO Physical Exam Vital Signs Date Time Temp Pulse Resp B/P (MAP) Pulse Ox O2 Delivery O2 Flow Rate FiO2 01/09/17 14:24 63 18 107/55 97 Room Air 01/09/17 13:52 97 Room Air 01/09/17 13:52 76 18 124/68 98 Room Air 01/09/17 12:36 37.0 70 20 130/85 98 Room Air Physical Exam VITALS: Vitals are noted on the nurse's note and reviewed by myself. Vital signs stable. GENERAL: Pleasant female, in no acute distress, nondiaphoretic, well-developed well-nourished. SKIN: The skin was without rashes, erythema, edema, or bruising. There is no tenting of the skin. Capillary reflex less than 2 seconds. HEAD: Normocephalic atraumatic. EARS: External auditory canals clear, tympanic membranes pearly otero without erythema or effusion bilaterally. EYES: Pupils equal round and reactive to light and accommodation. Conjunctivae without injection, sclerae without icterus. Extraocular movements intact. NOSE: Patent, turbinates without inflammation or discharge. MOUTH: Mucous membranes moist. Pharynx without erythema or exudate. Uvula midline. Airway patent. Tongue does not deviate. NECK: Supple without nuchal rigidity. No lymphadenopathy. No thyromegaly. Cervical spine is nontender. No JVD. HEART: Regular rate and rhythm without murmurs gallops or rubs. LUNGS: Clear to auscultation bilaterally without wheezes, rales or rhonchi. No dullness to percussion. No retractions or accessory muscle use. ABDOMEN: Positive bowel sounds x 4. Normal tympanic percussion. Soft, nontender, without masses or organomegaly. Deng sign negative. No guarding or rebound tenderness. No CVA tenderness exam: Normal external female genitalia, minimal blood in the vault, os is closed, no CMT tenderness. Cook Seafood present. MUSCULOSKELETAL: No muscle atrophy, erythema, or edema noted. NEURO: Patient was alert and oriented to person place and time. Normal sensation to light and sharp touch. No focal neurological deficits. Medical Decision & Procedures Laboratory Results 01/09/17 13:20 Red Blood Count 4.89, Mean Corpuscular Volume 85.3, Mean Corpuscular Hemoglobin 29.9, Mean Corpuscular Hemoglobin Concent 35.0, Mean Platelet Volume 11.2, Neutrophils (%) (Auto) 64.5, Lymphocytes (%) (Auto) 24.5, Monocytes (%) (Auto) 9.3, Eosinophils (%) (Auto) 1.2, Basophils (%) (Auto) 0.2, Neutrophils # (Auto) 5.91, Lymphocytes # (Auto) 2.24, Monocytes # (Auto) 0.85, Eosinophils # (Auto) 0.11, Basophils # (Auto) 0.02 01/09/17 13:20 Test 01/09/17 13:19 01/09/17 13:20 Urine Color ORANGE Urine Appearance CLEAR (CLEAR) Urine pH 5.5 (4.5-7.5) Urine Specific [place] 1.010 (1.000-1.030) Urine Protein NEG (NEG) Urine Glucose (UA) NEG (NEG) Urine Ketones NEG (NEG) Urine Occult Blood 3+ (NEG) Urine Nitrite NEG (NEG) Urine Bilirubin NEG (NEG) Urine Urobilinogen NEG (NEG) Urine Leukocyte Esterase NEG (NEG) Urine WBC (Auto) 1-5 /hpf (0-5) Urine RBC (Auto) >30 /hpf (0-4) Urine Hyaline Casts (Auto) 1-5 /lpf (0-5) Urine Epithelial Cells (Auto) 20-30 /lpf (0-5) Urine Bacteria (Auto) NEG (NEG) Urine Test NEG (NEG) White Blood Count 9.16 K/uL (4.8-10.8) Red Blood Count 4.89 M/uL (4.2-5.4) Hemoglobin 14.6 g/dL (12.0-16.0) Hematocrit 41.7 % (37-47) Mean Corpuscular Volume 85.3 fL (80-100) Mean Corpuscular Hemoglobin 29.9 pg (25-34) Mean Corpuscular Hemoglobin Concent 35.0 g/dl (32-36) Platelet Count 248 K/uL (130-400) Mean Platelet Volume 11.2 fL (7.4-10.4) Neutrophils (%) (Auto) 64.5 % Lymphocytes (%) (Auto) 24.5 % Monocytes (%) (Auto) 9.3 % Eosinophils (%) (Auto) 1.2 % Basophils (%) (Auto) 0.2 % Neutrophils # (Auto) 5.91 K/uL (1.4-6.5) Lymphocytes # (Auto) 2.24 K/uL (1.2-3.4) Monocytes # (Auto) 0.85 K/uL (0.11-0.59) Eosinophils # (Auto) 0.11 K/uL (0-0.5) Basophils # (Auto) 0.02 K/uL (0-0.2) RDW Standard Deviation 40.1 fL (36.4-46.3) RDW Coefficient of Variation 12.9 % (11.5-14.5) Immature Granulocyte % (Auto) 0.3 % Immature Granulocyte # (Auto) 0.03 K/uL (0.00-0.02) Prothrombin Time 10.7 SECONDS (9.0-12.0) Prothromb Time International Ratio 1.0 (0.9-1.1) Activated Partial Thromboplast Time 29.9 SECONDS (21.0-31.0) Partial Thromboplastin Ratio 1.2 Anion Gap 7.0 mmol/L (3-11) Est Creatinine Clear Calc Drug Dose 148.0 ml/min Estimated GFR () 133.0 Estimated GFR (Non- 114.7 BUN/Creatinine Ratio 15.4 (10-20) Calcium Level 8.6 mg/dl (8.5-10.1) Total Bilirubin 0.5 mg/dl (0.2-1) Aspartate Amino Transf (AST/SGOT) 27 U/L (15-37) Alanine Aminotransferase (ALT/SGPT) 50 U/L (12-78) Alkaline Phosphatase 132 U/L (45-117) Total Protein 7.0 gm/dl (6.4-8.2) Albumin 3.3 gm/dl (3.4-5.0) Globulin 3.7 gm/dl (2.5-4.0) Albumin/Globulin Ratio 0.9 (0.9-2) Thyroid Stimulating Hormone (TSH) 2.460 uIu/ml (0.300-4.500) ED Course Prior records/ancillary studies reviewed. Triage Nursing notes reviewed. Additional history obtained from the family. The patient's history was concerning for vaginal bleeding and abdominal pain who is 6 weeks . Differential diagnosis: Etiologies such as ectopic , dysfunction uterine bleeding, bleeding dyscrasia, trauma, infection, as well as others were entertained. Physical examination: As above. Vitals signs revealed stable. ER treatment provided: Patient was observed On reassessment the patient felt better. Diagnostic interpretation by me: The labs revealed the patient had CBC, coagulation studies, and chemistries that were unremarkable. Euthyroid Urine test was neg. Urinalysis revealed no sign of infection. Imaging studies: Ultrasound as above ULTRASOUND OF THE PELVIS CLINICAL HISTORY: Heavy bleeding. Pelvic pain. 6 weeks . COMPARISON STUDY: Pelvic CT dated 11/30/2015. TECHNIQUE: Real-time, grayscale, and color flow sonography of the pelvis is performed transabdominally. Images are reviewed in the transverse and longitudinal planes. The endovaginal examination was deferred. FINDINGS: Uterus: The uterus is normal in size and echotexture, measuring 8.4 x 4.3 x 5.2 cm. Endometrium: The endometrium is normal in appearance, and the endometrial stripe is normal in thickness measuring up to 0.3 cm. No hypervascularity is seen on color imaging. Ovaries: The ovaries are normal in size and morphology. The right ovary measures 2.7 x 1.9 x 2.5 cm and the left ovary measures 2.2 x 1.9 x 2.3 cm. Small follicles are seen bilaterally. Normal Doppler waveforms are shown within both ovaries. Pelvis: There is no free fluid in the cul-de-sac. No concerning adnexal lesion is seen. IMPRESSION: No acute sonographic abnormality is identified in the pelvis on this transabdominal examination. Electronically signed by: Marvin Porras M.D. 01/09/2017 3:06 PM Dictated Date/Time: 01/09/2017 3:05 PM Consultation: A consultation was placed with the scrap separator physician, Dr Mills. The case was discussed and diagnostics were reviewed. She recommends discharge with outpatient follow-up as scheduled in 3 days. This appears to be consistent with dysfunctional uterine bleeding. Patient was neurovascularly and neurologically intact. She did not have acute abdomen on exam. She is well-appearing. She had stable H&H. She is advised to follow-up with OB in a few days or here in the ER sooner for heavy bleeding, pain, fevers , worsening signs or symptoms or as needed. By the evaluation outlined above emergent etiologies such as bleeding dyscrasia, ectopic , trauma, as well as others were deemed relatively unlikely. The pt informed about the findings as listed above. All questions were answered and pleased with the treatment. Return instructions were outlined and the patient was discharged in stable condition. Outpatient prescription management: Zofran Referral: The patient was referred to CUSTOMER ORDER CLERK for follow-up in 2 to 3 days for a recheck of her current condition. Case reviewed with my attending. Medical Decision As above Medication Reconcilliation Current Medication List: was personally reviewed by me Blood Pressure Screening Patient's blood pressure: Normal blood pressure Impression Primary Impression: Dysfunctional uterine bleeding Departure Information Dispostion Home / Self-Care Condition GOOD Referrals Katarina Schultz, C.R.N.P (PCP) Patient Instructions My [facility] Additional Instructions Rest. Stay well hydrated. No strenuous activity or intercourse until cleared by CUSTOMER ORDER CLERK. Zofran 4 tablet every 6 hours as needed for nausea and vomiting. Ibuprofen(Motrin, Advil) may be used for fever or pain. Use 600mg every six hours as needed. Take with food. Avoid using more than 2400mg in a 24 hour period. Do not use 2400mg per day for more than three consecutive days without physician direction. Prolonged inappropriate use can lead to stomach upset or ulcers. (AND/OR) Acetaminophen(Tylenol) may be used for fever or pain. Use 1000mg every six hours as needed. Avoid using more than 3000mg in a 24 hour period. Rest and drink plenty of fluids as tolerated. Continue current medications. Return to the ER immediately for worsening or persistent heavy vaginal bleeding , abdominal pain, vomiting, fevers, chest pains, difficulty breathing, worsening of your condition, or as needed. Follow up with your CUSTOMER ORDER CLERK in 2-3 days for a recheck of your current condition.
[2017-01-09] MEDS ORDERED: ONDA4TAB10 SL (15:24)
[2017-01-09 15:28] VITALS: BP 116/81; PULSE 67; O2SAT 98
[2017-01-09] MEDS ORDERED: VNTHFA/IN INH (22:40)
== END 2017-01-09 15:29 | disposition home or self-care (01) ==
LOC: C.EDB 12:24 → C.EDC 15:29
DX: N93.8 Other specified abnormal uterine and vaginal bleeding (principal); J45.909 Unspecified asthma, uncomplicated; F32.9 Major depressive disorder, single episode, unspecified; M54.5 Low back pain; G43.909 Migraine, unspecified, not intractable, without status migrainosus; Z87.440 Personal history of urinary (tract) infections; Z83.3 Family history of diabetes mellitus; Z83.79 Family history of other diseases of the digestive system; Z80.9 Family history of malignant neoplasm, unspecified; Z82.49 Family history of ischemic heart disease and other diseases of the circulatory system; Z84.1 Family history of disorders of kidney and ureter

== ENCOUNTER → 2017-02-07 | Outpatient (CLI) | payer OTHER ==
[~2017-02-07] MED LIST changes: +FLUO20CA35 PO; +ONDA4TAB10 SL; -ONDA4TAB46 PO; -PREN1TAB29 PO; +VNTHFA/IN INH
[2017-02-12 07:50] LABS: CHLAMYDIA TRACH RNA*** NOT DETECTED (NOT DETECTED); GC (NEIS GONORRHOEAE)RNA** NOT DETECTED (NOT DETECTED)
== END | disposition home or self-care (01) ==
LOC: C.LABSPEC 15:10
PROVIDERS: ATTEND Physician Assistant
DX: Z30.430 Encounter for insertion of intrauterine contraceptive device (principal)

== ENCOUNTER → 2017-03-23 | Outpatient (CLI) | payer OTHER ==
--- NOTE | 2017-03-23 12:11 | DIAGNOSTIC IMAGING REPORT ---
R ANKLE MIN 3 VIEWS ROUTINE, R FOOT MIN 3 VIEWS ROUTINE CLINICAL HISTORY: 21 years-old Female presenting with Foot injuryright. TECHNIQUE: Frontal, mortise and lateral views of the right ankle and frontal, oblique and lateral views of the right foot were obtained. COMPARISON: None. FINDINGS: Right ankle: Ankle mortise intact. No acute fracture or malalignment. No degenerative change noted. Soft tissue swelling evident over the medial malleolus. Right foot: No acute fracture or malalignment. No degenerative change noted. No radiographic soft tissue abnormality. IMPRESSION: 1. No acute osseous injury of the right ankle. 2. No acute osseous injury of the right foot. Electronically signed by: Alex Masters M.D. 03/23/2017 12:10 PM Dictated Date/Time: 03/23/2017 12:06 PM
== END | disposition home or self-care (01) ==
LOC: C.RADPV 11:49
PROVIDERS: ATTEND Nurse Practitioner
DX: S99.921A Unspecified injury of right foot, initial encounter (principal); X58.XXXA Exposure to other specified factors, initial encounter

== ENCOUNTER → 2017-05-26 | Outpatient (CLI) | payer OTHER ==
--- NOTE | 2017-05-26 12:24 | DIAGNOSTIC IMAGING REPORT ---
R KNEE 1 OR 2 VIEWS ROUTINE HISTORY: 22 years-old Female KNEE PAIN acute bilateral knee pain COMPARISON: Right knee radiographs 04/24/2014 TECHNIQUE: 2 views of the bilateral knees for a total of 4 images FINDINGS: No acute fracture, dislocation or significant degenerative changes identified within either knee. No osteochondral defect. Small right knee joint effusion. No opaque foreign bodies. IMPRESSION: 1. No acute fracture. 2. Small right knee joint effusion. The above report was generated using voice recognition software. It may contain grammatical, syntax or spelling errors. Electronically signed by: Brad Khalil M.D. 05/26/2017 12:23 PM Dictated Date/Time: 05/26/2017 12:21 PM
== END | disposition home or self-care (01) ==
LOC: C.RADBC 11:40
PROVIDERS: ATTEND Family Medicine
DX: M25.561 Pain in right knee (principal); M25.562 Pain in left knee

== ENCOUNTER → 2017-07-26 | Outpatient (CLI) | payer OTHER ==
[~2017-07-26] MED LIST changes: -ONDA4TAB10 SL
== END | disposition home or self-care (01) ==
LOC: C.LABPVFM 15:40
PROVIDERS: ATTEND Obstetrics & Gynecology
DX: Z32.00 Encounter for pregnancy test, result unknown (principal)

== ENCOUNTER 2017-08-05 13:36 | Emergency (ER) | payer OTHER ==
[~2017-08-05] VITALS: Ht 167.6 cm; Wt 117.8 kg
[2017-08-05 13:38] VITALS: TEMP 36.7; Ht 167.6 cm; Wt 117.8 kg
--- NOTE | 2017-08-05 13:58 | EMERGENCY ROOM VISIT NOTE ---
History Report prepared by Jessica: Bladimir Torres Under the Supervision of: Dr. Micah Dickey M.D. First contact with patient: 13:42 Chief Complaint: URINARY SYMPTOMS Stated Complaint: HURTS TO PEE,REQUESTING TEST History of Present Illness The patient is a 22 year old female who presents to the Emergency Room with complaints of intermittent pain with urination that began two days ago. She rates her discomfort as a 6/10 in severity. She describes her pain as a burning sensation. The patient states her last menstrual period was June 26. She reports that she missed her menstrual period this month and took a blood test three days ago, which was positive. The patient states she would like another test to confirm the . She reports that two days ago she noticed that she would experience pain in the beginning of urination. The patient also notes there is lower abdominal pain present. She believes she has a UTI. The patient denies vaginal bleeding or discharge. Source of History: patient Onset: two days ago Position: other (global) Symptom Intensity: 6/10 Quality: other ("razor blades") Timing: intermittent Associated Symptoms: + abdominal pain Note: Denies vaginal bleeding or discharge Review of Systems See HPI for pertinent positives and negatives. A total of ten systems were reviewed and were otherwise negative. Past Medical & Surgical Medical Problems: (1) Abdominal pain (2) Abdominal pain (3) Abdominal pain (4) Abdominal pain (5) Active labor at term (6) Asthma (7) Asthma exacerbation (8) Asthma exacerbation (9) Asthma with exacerbation (10) Back pain (11) Back pain (12) Bronchitis (13) Chest pain (14) Closed head injury (15) Concussion (16) Cramping affecting , antepartum (17) Depression (18) Dizziness (19) Encounter for test (20) First trimester (21) First trimester (22) Head injury (23) Irregular contractions (24) Low back pain (25) Low back pain (26) Migraine (27) Nausea and vomiting of , antepartum (28) Normal labor (29) Ovarian cyst (30) Ovarian cyst, follicular (31) Positive test (32) (33) with 23 completed weeks gestation (34) , first (35) Third trimester (36) Third trimester (37) Threatened miscarriage (38) Urinary tract infection (39) vaginal protrusion (40) vaginal protrusion (41) Viral syndrome Surgical Problems: (1) History of tonsillectomy (2) History of tonsillectomy (3) [place] teeth extracted Family History Diabetes mellitus FH: Crohn's disease FH: cancer FH: gallbladder disease FH: heart disease Hypertension Kidney disease Kidney stones Seizures Social History Smoking Status: Never Smoker Alcohol Use: none Drug Use: none Marital Status: in relationship Housing Status: lives with significant other Occupation Status: employed Current/Historical Medications Scheduled PRN Albuterol Hfa (Ventolin Hfa), 2 PUFFS INH Q6H PRN for Shortness of Breath Miscellaneous Medications Fluoxetine (Prozac), Unknown Dose PO Allergies Coded Allergies: Dextromethorphan (Verified Allergy, Mild, HIVES, 08/05/17) Guaifenesin (Verified Allergy, Mild, RASH TO THE DYE IN DAYQUIL, 08/05/17) Amadou (Verified Allergy, Mild, burning throat, 08/05/17) Pseudoephedrine (Verified Allergy, Mild, RASH TO THE DYE IN DAYQUIL, ) Uncoded Allergies: DYE (Allergy, Unknown, RASH, 04/18/16) Physical Exam Vital Signs Date Time Temp Pulse Resp B/P (MAP) Pulse Ox O2 Delivery O2 Flow Rate FiO2 08/05/17 15:42 80 16 132/70 97 08/05/17 13:38 36.7 78 20 145/100 99 Room Air Physical Exam Physical Exam GENERAL: She is oriented to person, place, and time. She appears well- developed and well-nourished. She does not appear distressed. ____ HENT: Exam performed. Head: Normocephalic and atraumatic. Right Ear: External ear normal. No mastoid tenderness. Left Ear: External ear normal. No mastoid tenderness. Mouth/Throat: The oropharynx is clear and moist. No trismus in the jaw. No dental abscesses or uvula swelling. No oropharyngeal exudate or tonsillar abscesses. ____ EYES: Conjunctivae and EOM are normal. Pupils are equal, round, and reactive to light. Right eye exhibits no discharge. Left eye exhibits no discharge. No scleral icterus. ____ NECK: Normal range of motion. Neck supple. No JVD present. No spinous process tenderness present. No carotid bruit present. No rigidity. No tracheal deviation and normal range of motion present. No Brudzinski's sign and no Kernig 's sign noted. ____ CV: Normal rate, regular rhythm, normal heart sounds and intact distal pulses. There is no peripheral edema. Palpable radial pulses bue. ____ PULM/CHEST: Effort normal and breath sounds normal. No respiratory distress. No stridor. She has no wheezes. She has no rales. Chest Wall: She exhibits no tenderness. ____ ABD: The abdomen is soft. Bowel sounds are normal. She has no distension. No mass is present. There is no tenderness. There is no rebound, no guarding, no Deng's sign and no tenderness at McBurney's point. Rovsig negative MUSC/SKEL: Normal range of motion. There is no peripheral edema, tenderness or deformity. LYMPH: No cervical adenopathy. ____ NEURO: She is alert and oriented to person, place, and time. She has normal strength. No cranial nerve deficit or sensory deficit. Coordination and gait normal. GCS eye subscore is 4. GCS verbal subscore is 5. GCS motor subscore is 6. Cerebellar tests wnl. ____ SKIN: Skin is warm and dry. She is not diaphoretic. ____ PSYCH: She has a normal mood and affect. Her behavior is normal. Judgment and thought content normal. ____ Medical Decision & Procedures Laboratory Results Test 08/05/17 13:45 08/05/17 14:40 Urine Color YELLOW Urine Appearance CLEAR (CLEAR) Urine pH 7.5 (4.5-7.5) Urine Specific [place] 1.019 (1.000-1.030) Urine Protein NEG (NEG) Urine Glucose (UA) NEG (NEG) Urine Ketones NEG (NEG) Urine Occult Blood NEG (NEG) Urine Nitrite NEG (NEG) Urine Bilirubin NEG (NEG) Urine Urobilinogen NEG (NEG) Urine Leukocyte Esterase NEG (NEG) Urine Test NEG (NEG) Human Chorionic Gonadotropin, Quant < 1 mIU/mL Laboratory results reviewed by me ED Course 1345: The patient was evaluated in room C05. A complete history and physical exam was performed. 1428: I reevaluated the patient. Repeat abdominal examination is wnl. I told her the UA and test is negative. She states she is concerned she is and would like a blood test to confirm that she is not . 1531: I reevaluated the patient. Her vital signs are stable. The repeat abdominal exam showed no pain on palpation. The patient's urine and serum tests per the patient's request were negative. She states she feels very relieved. The patient will be discharged. DISCHARGE - Plan of care discussed with patient and questions answered. The patient was given both verbal and printed discharge instructions. The patient verbalized understanding and ability to comply. The patient is to seek outpatient follow up as noted in the discharge instructions. The patient verbalized understanding and ability to comply. The patient is discharged in stable condition. The patient was instructed to return for worsening symptoms. Medical Decision 1345: The patient was evaluated in room C05. A complete history and physical exam was performed. 1428: I reevaluated the patient. Repeat abdominal examination is wnl. I told her the UA and test is negative. She states she is concerned she is and would like a blood test to confirm that she is not . 1531: I reevaluated the patient. Her vital signs are stable. The repeat abdominal exam showed no pain on palpation. The patient's urine and serum tests per the patient's request were negative. She states she feels very relieved. The patient will be discharged. DISCHARGE - Plan of care discussed with patient and questions answered. The patient was given both verbal and printed discharge instructions. The patient verbalized understanding and ability to comply. The patient is to seek outpatient follow up as noted in the discharge instructions. The patient verbalized understanding and ability to comply. The patient is discharged in stable condition. The patient was instructed to return for worsening symptoms. Medication Reconcilliation Current Medication List: was personally reviewed by me Blood Pressure Screening Patient's blood pressure: Elevated blood pressure Blood pressure disposition: Referred to PCP Impression Primary Impression: Dysuria Scribe Attestation The scribe's documentation has been prepared under my direction and personally reviewed by me in its entirety. I confirm that the note above accurately reflects all work, treatment, procedures, and medical decision making performed by me. The chart was completed utilizing D[employer] voice recognition software. Grammatical errors, random word insertions, pronoun errors, and incomplete sentences are an occasional consequence of this system due to software limitations, ambient noise, and hardware issues. Any formal questions or concerns about the content, text, or information contained within the body of this dictation should be directly addressed to the physician for clarification. Departure Information Dispostion Home / Self-Care Referrals Katarina Schultz C.R.N.P (PCP) Forms HOME CARE DOCUMENTATION FORM, IMPORTANT VISIT INFORMATION Patient Instructions ED Dysuria Uncertain Cause , [facility] Additional Instructions Return to the emergency department if you develop fever greater than 100.4, nausea and vomiting, blood in her vomit, bloody stool, vaginal bleeding, vaginal discharge, if symptoms do not improve.
[2017-08-05 15:42] VITALS: BP 132/70; PULSE 80; O2SAT 97
== END 2017-08-05 15:42 | disposition home or self-care (01) ==
LOC: C.EDB 13:37 → C.EDC 15:42
DX: R30.0 Dysuria (principal); J45.909 Unspecified asthma, uncomplicated; F32.9 Major depressive disorder, single episode, unspecified; Z87.440 Personal history of urinary (tract) infections; Z83.3 Family history of diabetes mellitus; Z80.9 Family history of malignant neoplasm, unspecified; Z82.49 Family history of ischemic heart disease and other diseases of the circulatory system; Z84.1 Family history of disorders of kidney and ureter; Z82.0 Family history of epilepsy and other diseases of the nervous system; Z83.79 Family history of other diseases of the digestive system; Z88.8 Allergy status to other drugs, medicaments and biological substances; Z91.018 Allergy to other foods

== ENCOUNTER → 2017-10-03 | Outpatient (CLI) | payer OTHER ==
[~2017-10-03] MED LIST changes: -FLUO20CA35 PO
== END | disposition home or self-care (01) ==
LOC: C.LABSPEC 15:30
PROVIDERS: ATTEND Obstetrics & Gynecology
DX: Z34.81 Encounter for supervision of other normal pregnancy, first trimester (principal)

== ENCOUNTER → 2017-10-10 | Outpatient (CLI) | payer OTHER ==
[2017-10-10 17:32] LABS: BASO % 0.2 %; BASO ABS # 0.02 K/uL (0-0.2); EOS % 0.9 %; EOS ABS # 0.12 K/uL (0-0.5); HEMOGLOBIN 13.6 g/dL (12.0-16.0); IG# 0.04 K/uL (0.00-0.02); LYMPH % 21.9 %; LYMPH ABS # 2.81 K/uL (1.2-3.4); MEAN CELL VOLUME 84.7 fL (80-100); MEAN CORPUSCULAR HEMOGLOBIN 28.8 pg (25-34); MEAN PLATELET VOLUME 11.5 fL (7.4-10.4); MONO % 6.9 %; MONO ABS # 0.88 K/uL (0.11-0.59); NEUT % 69.8 %; NEUT ABS # 8.96 K/uL (1.4-6.5); PLATELET COUNT 275 K/uL (130-400); RED CELL DISTRIBUTION WIDTH CV 13.6 % (11.5-14.5); RED CELL DISTRIBUTION WIDTH SD 42.1 fL (36.4-46.3); WHITE BLOOD COUNT 12.83 K/uL (4.8-10.8)
== END | disposition home or self-care (01) ==
LOC: C.LAB1850 16:38
PROVIDERS: ATTEND Obstetrics & Gynecology
DX: Z34.81 Encounter for supervision of other normal pregnancy, first trimester (principal)

== ENCOUNTER → 2017-10-23 | Outpatient (CLI) | payer OTHER | END | disposition home or self-care (01) | LOC: C.LABSPEC 17:22 | PROVIDERS: ATTEND Obstetrics & Gynecology | DX: Z34.81 Encounter for supervision of other normal pregnancy, first trimester (principal) ==

== ENCOUNTER → 2017-10-23 | Outpatient (CLI) | payer OTHER | END | disposition home or self-care (01) | LOC: C.PAPS 17:32 | PROVIDERS: ATTEND Obstetrics & Gynecology | DX: Z12.4 Encounter for screening for malignant neoplasm of cervix (principal) ==

== ENCOUNTER 2018-05-07 13:49 | Inpatient (IN) ==
[2018-05-07] MEDS ORDERED: OXYTOCIN 30 UNITS/500 ML BAG IV PRN ×3 (14:11→19:35)
--- NOTE | 2018-05-07 15:21 | History & Physical Report ---
Date of Service May 07, 2018 Assessment & Plan (1) Third trimester : Contractions, will ambulate and recheck cervix for labor. Patient is agreeable. GBS neg. History of Present Illness Chief Complaint: contractions, h/o fast labor Primary Care Provider: ABIGAIL Funk 23yo @ 39 04/25 who presents with contractions since noon today. She had been having nurse advocate ctx throughout the day, but they really picked up in frequency and intensity at noon today. Yesterday's office exam 4cm. complicated by asthma and h/o fast labors with her prior two babies. + movement, no vaginal bleeding, no leaking of fluid. Allergies Allergy/AdvReac Type Severity Reaction Status Date / Time dextromethorphan Allergy Severe HIVES Verified 04/10/18 19:27 guaifenesin Allergy Intermediate RASH TO Verified 04/10/18 19:27 [facility] [place] pseudoephedrine Allergy Intermediate RASH TO Verified 04/10/18 19:27 [facility] [place] jakub Allergy Mild burning Verified 04/10/18 19:27 throat DYE Allergy Intermediate RASH Uncoded 04/10/18 19:27 Home Medications Home Medications Medication Instructions Recorded Confirmed Type albuterol sulfate 1 inh INHALATION DAILY PRN 04/10/18 04/10/18 History vit-iron fum-folic ac 1 tab PO DAILY 05/07/18 05/07/18 History [ Vitamin] Patient History Social History marital status: Current Living Situation: Spouse Other Information That Helps Us Care for You: No Feels Safe at Home: Yes Safety Concerns: Feels Safe At This Time Smoking Status: Never smoker Second Hand Exposure: No Hx Alcohol Use: No Hx Substance Use: No Beliefs That Will Affect Care: None Preferred Language: Cypriot Physical Exam 2 Vital Signs (Past 24 Hours): Last Vital Signs Temp 36.5 C 05/07/18 14:01 Pulse 93 H 05/07/18 14:10 BP 136/83 05/07/18 14:10 Physical Exam: Gen: AAOx3 NAD CV: RRR L: CTAB Abd: soft, gravid, NTTP Ext: no edema SVE: 4/80/-2 FHT: Cat 1 Corn Q 3min
[2018-05-07] MEDS ORDERED: LACTATED RINGER'S 1,000 ML IV PRN (15:26)
[2018-05-07] MEDS ORDERED: LACTATED RINGER'S 1,000 ML IV SCH (15:30)
--- NOTE | 2018-05-07 15:30 | Obstetrical Progress Note ---
Date of Service May 07, 2018 Subjective Significantly more uncomfortable after about 1 hour ambulating in the halls. SVE //-1 FHT 160s, mod maura, +accels. +variable decelerations [place] Q 2-3 Will admit, patient desires epidural. Physical Exam 2 Vital Signs (Past 24 Hours): Last Vital Signs Temp 36.5 C 05/07/18 14:01 Pulse 93 H 05/07/18 14:10 BP 136/83 05/07/18 14:10
[2018-05-07] MEDS ORDERED: BUPIVACAINE 0.25% 30 ML VIAL ONE (15:50)
[2018-05-07] MEDS ORDERED: fentaNYL citrate 100 MCG/2 ML VIAL ONE (15:50)
[2018-05-07] MEDS ORDERED: ePHEDrine sulfate 50 MG/ML AMP ONE (15:50)
[2018-05-07 15:51] LABS: Hematocrit (blood only) 40.6 % (37-47); Hemoglobin 13.6 g/dL (12.0-16.0); Mean Platelet Volume 11.4 fL (7.4-10.4); Platelet Count 254 K/uL (130-400); RDW Coefficient of Variation 13.8 % (11.5-14.5); RDW Standard Deviation 42.8 fL (36.4-46.3); Red Blood Count 4.72 M/uL (4.2-5.4); White Blood Count 18.79 K/uL (4.8-10.8)
[2018-05-07] MEDS ORDERED: fentaNYL 2MCG/ML ROPIV 1.25MG/ML 100 ML BAG EPI ONE (15:51)
[2018-05-07 16:01] LABS: Mean Corpuscular Hgb Conc 33.5 g/dL (32-36)
[2018-05-07] MEDS ORDERED: ONDANSETRON INJ 2 MG/ML 2 ML VIAL IV PRN (16:01)
--- NOTE | 2018-05-07 16:06 | Obstetrical Progress Note ---
Date of Service May 07, 2018 Subjective Very uncomfortable, feeling pressure with ctx. FHT 150s, mod maura. +accels. With variable decelerations [place] Q 2-3 SVE 7-8/100/0 Asking for epidural, making quick progress. Will attempt to get epidural prior to delivery. Receiving IV fluid bolus now. Physical Exam 2 Vital Signs (Past 24 Hours): Last Vital Signs Temp 36.5 C 05/07/18 14:01 Pulse 93 H 05/07/18 14:10 BP 136/83 05/07/18 14:10
[2018-05-07] MEDS ORDERED: ONDANSETRON INJ 2 MG/ML 2 ML VIAL ONE (16:11)
--- NOTE | 2018-05-07 16:43 | Procedure Note ---
Vaginal Delivery Summary Date of Service May 07, 2018 Vaginal Delivery Summary Predelivery diagnoses: 23yo @ 39 04/25, spontaneous labor Postdelivery diagnoses: same Procedure: spontaneous vaginal delivery Surgeon: Kim Scott DO EBL 300ml Complications: none Findings: viable male , apgars 9/10. Weight pending, please see nursery records. Delivery: Patient progressed to complete without anesthesia. She felt the urge to push, water broke for clear fluid, and she delivered the head within 2 pushes. The baby delivered from a cephalic presentation, ANGÉLICA position, nuchal cord x 3. Reduced x 1, and the baby was delivered through the other 2 nuchals. The baby was placed on mother's abdomen, spontaneous cry was heard. Delayed cord clamping was employed after 1 minute. The cord was doubly clamped and cut after 1 minute. Cord blood obtained. The placenta delivered spontaneously intact with a 3 vessel cord. Pitocin was given. Uterus became firm. Uterus/ vagina were swept of clots and debris. Cervix, vagina, perineum were inspected and no lacerations were noted. Excellent hemostasis. Mother and baby recovering in room in stable and good condition.
[2018-05-07] MEDS: IBUPROFEN 600 MG TAB PO PRN ×2 (17:43→22:14)
[2018-05-07] MEDS ORDERED: BISACODYL 10 MG SUPP PR PRN (19:35)
[2018-05-07] MEDS ORDERED: BENZOCAINE 20% AER SPR 82.5 GM CAN EXT PRN (19:35)
[2018-05-07] MEDS ORDERED: SUPERCREAM 0.870% 15 GM JAR EXT PRN (19:35)
[2018-05-07] MEDS ORDERED: ACETAMINOPHEN 325 MG TAB PO PRN (19:35)
[2018-05-07] MEDS ORDERED: HYDROCORTISONE ACETATE 25 MG SUPP PR PRN (19:35)
[2018-05-07] MEDS ORDERED: ACETAMINOPHEN W/CODEINE #3 1 TAB PO PRN (19:35)
[2018-05-07] MEDS ORDERED: DIPHTHERIA/TETANUS/PERTUSSIS 0.5 ML SYR/VIAL IM ONE (19:35)
[2018-05-07] MEDS ORDERED: ALBUTEROL HFA 8 GM INHALER INH PRN (19:35)
[2018-05-07] MEDS: DOCUSATE SODIUM 100 MG CAP PO SCH (20:15)
[2018-05-08] MEDS: IBUPROFEN 600 MG TAB PO PRN ×5 (03:03→21:03)
[2018-05-08 06:24] LABS: Hematocrit (blood only) 33.6 % (37-47); Hemoglobin 11.3 g/dL (12.0-16.0)
--- NOTE | 2018-05-08 06:56 | Obstetrical Progress Note ---
Date of Service <Natalia Pepe MD - Last Filed: 05/08/18 06:56> May 08, 2018 Assessment & Plan <Natalia Pepe MD - Last Filed: 05/08/18 06:56> (1) Spontaneous vaginal delivery: 23yo @39.2 weeks with . PPD #1 Routine care -ambulation as tolerated -food + hydration -Pain control Subjective <Natalia Pepe MD - Last Filed: 05/08/18 06:56> Ambulation: ambulating normally Voiding: no voiding problems Passing Gas:: Yes Diet Tolerance:: regular diet Lochia:: Moderate Feeding Type:: breast feeding Current Pain Level(1-10): 4 Constitutional: no fever and no chills Respiratory: no dyspnea Cardiovascular: no chest pain, no palpitations, no lightheadedness and no calf pain Gastrointestinal: no nausea and no vomiting Neurologic: no headache(s) Physical Exam <Natalia Pepe MD - Last Filed: 05/08/18 06:56> Vital Signs (Past 24 Hours) Last Vital Signs Temp 36.9 C 05/08/18 03:00 Pulse 84 05/08/18 03:00 Resp 16 05/08/18 03:00 BP 124/80 05/08/18 03:00 Pulse Ox 99 05/08/18 03:00 Respiratory normal respiratory effort, lungs clear to auscultation Cardiovascular RRR, no murmur, no edema Genitourinary OB Exam Abdomen: + fundal height Fundus: + firm; not tender and not boggy Results & Data <Natalia Pepe MD - Last Filed: 05/08/18 06:56> Laboratory Results Laboratory Results - last 24 hr 05/07/18 05/08/18 15:39 06:12 WBC 18.79 H RBC 4.72 Hgb 13.6 11.3 L Hct 40.6 33.6 L MCV 86.0 MCH 28.8 MCHC 33.5 RDW Std Deviation 42.8 RDW Coeff of Rhonda 13.8 Plt Count 254 MPV 11.4 H Medications Administered Home Medications albuterol sulfate 1 inh INHALATION DAILY PRN 04/10/18 [History Confirmed ] vit-iron fum-folic ac [ Vitamin] 1 tab PO DAILY 05/07/18 [ History Confirmed 05/07/18] Active Medications Acetaminophen (Tylenol) 650 mg PO Q6H PRN PRN Reason: Pain/WOODS/Fever Stop: 06/06/18 19:34 Acetaminophen/Codeine Phosphate (Tylenol W/Codeine #3) 1 - 2 tab PO Q4H PRN PRN Reason: Pain not controlled with... Stop: 06/06/18 19:34 Albuterol (Ventolin Hfa) 1 puffs INH DAILY PRN PRN Reason: Shortness Of Breath Stop: 06/06/18 19:34 Benzocaine (Dermoplast Pain Relieving [place]) 1 appln EXT PRN PRN PRN Reason: Perineal Discomfort Stop: 06/06/18 19:34 Last Admin: 05/07/18 20:16 Dose: 82.5 appln Bisacodyl (Dulcolax) 5 mg PO 2000 [facility] Stop: 05/08/18 20:01 Bisacodyl (Dulcolax) 10 mg [place] DAILY PRN PRN Reason: No BM on 2nd post- day Stop: 06/06/18 19:34 Cocaine HCl (Supercream 0.870%) 1 gm EXT BID PRN PRN Reason: Hemorrhoidal Inflammation Stop: 05/21/18 19:34 Docusate Sodium (Colace) 100 mg PO BID [facility] Stop: 06/06/18 20:59 Last Admin: 05/07/18 20:15 Dose: 100 mg Ferrous Sulfate (Feosol) 325 mg PO QAM [facility] Stop: 06/07/18 08:59 Hydrocortisone (Anusol Hc) 25 mg [place] BID PRN PRN Reason: Hemorrhoidal Inflammation Stop: 06/06/18 19:34 Oxytocin (Pitocin) 30 units in 500 mls @ 333.333 mls/hr IV .Q1H30M PRN; Protocol PRN Reason: BLEEDING CONTROL Stop: 06/06/18 19:34 Ibuprofen (Motrin) 600 mg PO Q4H PRN PRN Reason: Pain/WOODS/Cramping/Fever Stop: 06/06/18 16:31 Last Admin: 05/08/18 03:03 Dose: 600 mg Prenat Multivit/[place]/Iron/Folic Ac ( Vitamin) 1 tab PO QAM [facility] Stop: 06/07/18 08:59 <Lizeth Scott, - Last Filed: 05/08/18 07:23> Co-Signing Physician Notes I have seen/examined patient. I have read above note performed by resident and I agree with above. Any changes/additions are as follows: PPD#1 doing well. Discharge tomorrow. Lizeth Scott DO [facility]
[2018-05-08] MEDS: PRENATAL VITAMIN 1 TAB PO SCH (09:31)
[2018-05-08] MEDS: FERROUS SULFATE 325 MG TAB PO SCH (09:31)
[2018-05-08] MEDS: DOCUSATE SODIUM 100 MG CAP PO SCH ×2 (09:31→20:50)
[2018-05-08] MEDS ORDERED: BISACODYL 5 MG TABEC PO SCH (20:00)
[2018-05-09] MEDS: IBUPROFEN 600 MG TAB PO PRN ×3 (03:06→13:27)
--- NOTE | 2018-05-09 07:46 | Obstetrical Progress Note ---
Date of Service <Natalia Pepe MD - Last Filed: 05/09/18 07:46> May 09, 2018 Assessment & Plan <Natalia Pepe MD - Last Filed: 05/09/18 07:46> (1) Spontaneous vaginal delivery: 23yo @39.2 weeks with . PPD #2 Dischare today-Instructions reviewed Subjective <Natalia Pepe MD - Last Filed: 05/09/18 07:46> Ambulation: ambulating normally Voiding: no voiding problems Passing Gas:: Yes Diet Tolerance:: regular diet Lochia:: Moderate Feeding Type:: breast feeding Current Pain Level(1-10): 0 Respiratory: no dyspnea Cardiovascular: no chest pain, no palpitations, no lightheadedness, no edema and no calf pain Gastrointestinal: + nausea (I RESOLVING EPISODE THIS AM); no vomiting Genitourinary (female): no dysuria Neurologic: no headache(s) Physical Exam <Natalia Pepe MD - Last Filed: 05/09/18 07:46> Vital Signs (Past 24 Hours) Last Vital Signs Temp 36.8 C 05/09/18 00:15 Pulse 80 05/09/18 00:15 Resp 18 05/09/18 00:15 BP 120/81 05/09/18 00:15 Pulse Ox 100 05/08/18 15:38 Respiratory normal respiratory effort, lungs clear to auscultation Cardiovascular RRR, no murmur, no edema Genitourinary OB Exam Abdomen: + fundal height Fundus: + firm; not tender and not boggy Results & Data <Natalia Pepe MD - Last Filed: 05/09/18 07:46> Medications Administered Home Medications albuterol sulfate 1 inh INHALATION DAILY PRN 04/10/18 [History Confirmed ] vit-iron fum-folic ac [ Vitamin] 1 tab PO DAILY 05/07/18 [ History Confirmed 05/07/18] Active Medications Acetaminophen (Tylenol) 650 mg PO Q6H PRN PRN Reason: Pain/WOODS/Fever Stop: 06/06/18 19:34 Acetaminophen/Codeine Phosphate (Tylenol W/Codeine #3) 1 - 2 tab PO Q4H PRN PRN Reason: Pain not controlled with... Stop: 06/06/18 19:34 Albuterol (Ventolin Hfa) 1 puffs INH DAILY PRN PRN Reason: Shortness Of Breath Stop: 06/06/18 19:34 Benzocaine (Dermoplast Pain Relieving [place]) 1 appln EXT PRN PRN PRN Reason: Perineal Discomfort Stop: 06/06/18 19:34 Last Admin: 05/07/18 20:16 Dose: 82.5 appln Bisacodyl (Dulcolax) 10 mg [place] DAILY PRN PRN Reason: No BM on 2nd post- day Stop: 06/06/18 19:34 Cocaine HCl (Supercream 0.870%) 1 gm EXT BID PRN PRN Reason: Hemorrhoidal Inflammation Stop: 05/21/18 19:34 Docusate Sodium (Colace) 100 mg PO BID [facility] Stop: 06/06/18 20:59 Last Admin: 05/08/18 20:50 Dose: 100 mg Ferrous Sulfate (Feosol) 325 mg PO QAM [facility] Stop: 06/07/18 08:59 Last Admin: 05/08/18 09:31 Dose: 325 mg Hydrocortisone (Anusol Hc) 25 mg [place] BID PRN PRN Reason: Hemorrhoidal Inflammation Stop: 06/06/18 19:34 Oxytocin (Pitocin) 30 units in 500 mls @ 333.333 mls/hr IV .Q1H30M PRN; Protocol PRN Reason: BLEEDING CONTROL Stop: 06/06/18 19:34 Ibuprofen (Motrin) 600 mg PO Q4H PRN PRN Reason: Pain/WOODS/Cramping/Fever Stop: 06/06/18 16:31 Last Admin: 05/09/18 03:06 Dose: 600 mg Prenat Multivit/Pocketed [employer]/Iron/Folic Ac ( Vitamin) 1 tab PO QAM [facility] Stop: 06/07/18 08:59 Last Admin: 05/08/18 09:31 Dose: 1 tab <Fernanda Lester MD, FACOG - Last Filed: 05/09/18 07:58> Co-Signing Physician Notes Resident Physician Supervision Note: I was present with Dr. Pepe during the history and exam. I discussed the case with the resident and agree with the findings and plan as documented in the note. Any exceptions or clarifications are listed here: Doing well. Ready for discharge. Instructions reviewed. Eating, voiding, ambul without problem. f/u 6wks pp check. Documented By: Fernanda Lester MD, FACOG
--- NOTE | 2018-05-09 08:26 | Obstetrical Progress Note ---
Date of Service May 09, 2018 Assessment & Plan (1) depression: will start prozac, sent to pharmacy. advised for appt in 2wks with Dr. Scott. She denies h/o martha. Aware of SE and ok with nursing. Subjective has sx of pp depression, had in past and treated with prozac by her pcp in past. would like to start again. she did not speak about it this am to me but then d/w nurse and i went back to check on her about this. Physical Exam 2 Vital Signs (Past 24 Hours): Last Vital Signs Temp 36.8 C 05/09/18 00:15 Pulse 80 05/09/18 00:15 Resp 18 05/09/18 00:15 BP 120/81 05/09/18 00:15 Pulse Ox 100 05/08/18 15:38 Constitutional: WD/WN, vitals as above
[2018-05-09] MEDS: PRENATAL VITAMIN 1 TAB PO SCH (08:56)
[2018-05-09] MEDS: FERROUS SULFATE 325 MG TAB PO SCH (08:56)
[2018-05-09] MEDS: DOCUSATE SODIUM 100 MG CAP PO SCH (08:56)
[2018-05-09] MEDS ORDERED: FLUOXETINE HCL 10 MG CAP PO STA (09:02)
== END 2018-05-09 16:30 | disposition home or self-care (01) | DRG 807 ==
LOC: OPB 13:49 → 4S1 13:51 → 4S2 20:14